=== PATIENT | male | born 1970 | race Caucasian/White ===

== ENCOUNTER → 2021-10-27 | Day surgery (SDC) | payer BC ==
[~2021-10-27] MED LIST: LIDOCAINE 1% INJ 10MG/ML (30 ML VIAL-PF) SQ ONE
[2021-10-27 10:05] VITALS: BP 136/79; PULSE 73; RESP 16; TEMP 98
[2021-10-27 10:12] LABS: Basophils % (A) 0 %; Eosinophils # (A) 0.2 k/uL (0-0.7); Eosinophils % (A) 2 %; HCT 51.9 % (39.0-53.0); HGB 16.5 gm/dL (13.0-17.5); Hypochromasia Slight; Lymphocytes # (A) 1.8 k/uL (1.0-4.8); Lymphocytes % (A) 26 %; MCH 26.4 pg (25.0-35.0); MCHC 31.8 g/dL (31.0-37.0); Mean Platelet Volume 7.9; Monocytes # (A) 0.5 k/uL (0-1.0); Monocytes % (A) 7 %; Neutrophils # (A) 4.5 k/uL (1.3-7.7); Neutrophils % (A) 62 %; Platelet Count 245 k/uL (150-450); RBC 6.25 m/uL (4.30-5.90); RDW 15.9 % (11.5-15.5); WBC 7.2 k/uL (3.8-10.6)
[2021-10-27 10:27] LABS: Albumin 4.3 g/dL (3.5-5.0); Calcium 9.3 mg/dL (8.4-10.2); Potassium 4.2 mmol/L (3.5-5.1); Total Bilirubin 0.6 mg/dL (0.2-1.3)
--- NOTE | 2021-10-27 12:09 | IR ---
PICC LINE PLACEMENT: HISTORY: Infection requiring long-term antibiotic therapy PROCEDURE: Ultrasound and fluoroscopic guidance of PICC line placement. COMPLICATIONS: None ANESTHESIA: 1. 1% Lidocaine locally. FINDINGS/TECHNIQUE: The procedure was explained to the patient. The risks, complications, benefits and alternatives were discussed and any questions were answered. Informed consent was obtained. The patient was placed supine on the fluoroscopic table and prepped and draped in the usual sterile fash ion. Utilizing a 21 gauge needle and sonographic and fluoroscopic guidance, access in the left brac hial vein was achieved and there is placement of a 0.018 guidewire. The vein is patent. A 4-F sheat h was placed over the guidewire. The guidewire and dilator were removed and a 4-F. PICC line was olivia grace through the sheath with the tip at the level of the SVC. The sheath was removed, the catheter wa s flushed and sutured into position. The patient was stable throughout the procedure and remained st able upon discharge from the Department of Radiology. The vein puncture was patent under ultrasound. A alvarez scale image was obtained to document patency of the vein punctured. All elements of the maximal barrier technique were utilized. FLUOROSCOPY TIME: 0.1 minutes and was submitted IMPRESSION: Successful PICC line placement under ultrasound and fluoroscopic guidance.
== END ==
LOC: CATHCVL 09:24
PROVIDERS: ATTEND Radiology Diagnostic Radiology
DX: E11.69 Type 2 diabetes mellitus with other specified complication (principal); M86.9 Osteomyelitis, unspecified; E11.22 Type 2 diabetes mellitus with diabetic chronic kidney disease; N18.6 End stage renal disease; Z20.822 Contact with and (suspected) exposure to COVID-19
CPT/HCPCS: 36573; 80053; 80197; 85025; 87635; C1751; C1769; J2001

== ENCOUNTER 2024-05-29 05:42 | Day surgery (SDC) | payer BC ==
[2024-05-25 11:19] VITALS: BMI 24.3
[2024-05-29] MEDS ORDERED: HYDROmorphone 0.5 MG/0.5 ML SYRINGE IVP PRN (05:54)
[2024-05-29] MEDS ORDERED: LACTATED RINGERS 1,000 ML IV SCH (05:54)
[2024-05-29 06:29] LABS: Glucose,Whole Blood 111 mg/dL (70-110)
[2024-05-29] MEDS: ACETAMINOPHEN TAB 500 MG TAB PO PRN (06:33)
[2024-05-29] MEDS: HEPARIN SODIUM,PORCINE 5,000 UNIT/ML 1 ML VIAL SQ PRN (06:34)
[2024-05-29] MEDS: ONDANSETRON 4 MG/2 ML VIAL IVP ONE (06:34)
[2024-05-29] MEDS: DEXAMETHASONE SOD PHOSPHATE 4 MG/ML 1 ML VIAL IV ONE (06:34)
[2024-05-29 06:40] LABS: Anisocytosis Slight; Basophils % (A) 0 %; Eosinophils # (A) 0.2 k/uL (0-0.7); Eosinophils % (A) 4 %; HCT 29.4 % (39.0-53.0); Hypochromasia Slight; Lymphocytes # (A) 0.8 k/uL (1.0-4.8); Lymphocytes % (A) 15 %; MCH 24.9 pg (25.0-35.0); MCHC 30.7 g/dL (31.0-37.0); MCV 81.3 fL (80.0-100.0); Mean Platelet Volume 8.6; Microcytosis Slight; Monocytes # (A) 0.5 k/uL (0-1.0); Monocytes % (A) 9 %; Neutrophils # (A) 3.9 k/uL (1.3-7.7); Neutrophils % (A) 70 %; Platelet Count 241 k/uL (150-450); RBC 3.61 m/uL (4.30-5.90); RDW 18.9 % (11.5-15.5); WBC 5.6 k/uL (3.8-10.6)
[2024-05-29] MEDS: SODIUM CHLORIDE 0.9% 500 ML 500 ML IV ONE (06:46)
[2024-05-29 06:59] LABS: ALT 7 U/L (4-49); AST 14 U/L (17-59); African American GFR (CKD) 8 (>60 ml/min/1.73 sqM); Alkaline Phosphatase 46 U/L (38-126); Anion Gap 5 mmol/L; Blood Urea Nitrogen 38 mg/dL (9-20); Calcium 9.2 mg/dL (8.4-10.2); Carbon Dioxide 33 mmol/L (22-30); Chloride 95 mmol/L (98-107); Glucose 106 mg/dL (74-99); Non-African American GFR(CKD) 7 (>60 ml/min/1.73 sqM); Potassium 4.3 mmol/L (3.5-5.1); Sodium 133 mmol/L (137-145); Total Bilirubin 0.6 mg/dL (0.2-1.3); Total Protein 6.2 g/dL (6.3-8.2)
[2024-05-29] MEDS ORDERED: PROPOFOL 10 MG/ML 20 ML VIAL IV ONE (07:25)
[2024-05-29] MEDS ORDERED: fentaNYL (PF) 50 MCG/ML 2 ML AMP ONE (07:25)
[2024-05-29] MEDS ORDERED: SUCCINYLCHOLINE CHLORIDE 200 MG/10 ML VIAL IV ONE (07:25)
[2024-05-29] MEDS ORDERED: MIDAZOLAM 2 MG/2 ML VIAL ONE (07:25)
[2024-05-29] MEDS ORDERED: LIDOCAINE 1% INJ 10MG/ML (20 ML MDV) ONE (07:25)
--- NOTE | 2024-05-29 07:31 | P.GSHP ---
History of Present Illness H&P Date: 05/29/24 Chief Complaint: Renal failure 54-year-old male here for peritoneal dialysis catheter insertion. Patient has not had a PD cath in the past. He has had 2 separate transplants previously. He has been on hemodialysis on various times of his life. Patient with history of polycystic kidney. Patient with stage IV anal cancer. Remains on immunotherapy. No cancer is active at this time. Past Medical History Past Medical History: Cancer, Diabetes Mellitus, Dialysis, GERD/Reflux, Hyperlipidemia, Hypertension Additional Past Medical History / Comment(s): Hx colon cancer 04/24, had chemo and radiation, currently on Keyytruda every 6 weeks, hx osteomyelitis right big toe right, neuropathy, hx bilateral kidney transplant due to hereditary polycystic kidney disase, dialysis MOWEFR. History of Any Multi-Drug Resistant Organisms: None Reported Past Surgical History: Ear Surgery, Orthopedic Surgery Additional Past Surgical History / Comment(s): Bilateral kidney transplant 2017, ORIF right wrist, myringotomy/tubes bilateral ears. Past Anesthesia/Blood Transfusion Reactions: No Reported Reaction Additional Past Anesthesia/Blood Transfusion Reaction / Comment(s): No hx blood transfusion. Smoking Status: Never smoker - Past Family History Mother Family Medical History: No Reported History Medications and Allergies Home Medications Medication Instructions Recorded Confirmed Type Simvastatin 40 mg PO DAILY 10/08/21 05/25/24 History Omeprazole [PriLOSEC] 20 mg PO DAILY PRN 10/24/21 05/25/24 History Cholecalciferol (Vitamin D3) 50 mcg PO DAILY 05/25/24 05/25/24 History [Vitamin D3 (50 Mcg = 2000 Iu)] Vit B Comp No.3/Folic/C/Biotin 1 each PO DAILY 05/25/24 05/25/24 History [Dixie-Desiree Rx Tablet] Vitamin B-12 (Unknown Dose) 1 tab PO DAILY 05/25/24 05/25/24 History Allergies Allergy/AdvReac Type Severity Reaction Status Date / Time lisinopril AdvReac Cough Verified 05/25/24 10:56 Surgical - Exam Vital Signs Temp Pulse Resp BP Pulse Ox 99.1 F 84 18 151/90 99 05/29/24 06:43 05/29/24 06:43 05/29/24 06:43 05/29/24 06:43 05/29/24 06:43 Physical exam: General: Well-developed, well-nourished HEENT: Normocephalic, sclerae nonicteric Abdomen: Nontender, distended mildly from polycystic kidneys Extremities: No edema Neuro: Alert and oriented Results - Labs 05/29/24 06:30 05/29/24 06:30 Abnormal Lab Results - Last 24 Hours (Table) 05/29/24 05/29/24 05/29/24 Range/Units 06:27 06:30 06:30 RBC 3.61 L (4.30-5.90) m/uL Hgb 9.0 L (13.0-17.5) gm/dL Hct 29.4 L (39.0-53.0) % MCH 24.9 L (25.0-35.0) pg MCHC 30.7 L (31.0-37.0) g/dL RDW 18.9 H (11.5-15.5) % Lymphocytes # 0.8 L (1.0-4.8) k/uL Sodium 133 L (137-145) mmol/L Chloride 95 L (98-107) mmol/L Carbon Dioxide 33 H (22-30) mmol/L BUN 38 H (9-20) mg/dL Creatinine 7.96 H* (0.66-1.25) mg/dL Glucose 106 H (74-99) mg/dL POC Glucose (mg/dL) 111 H (70-110) mg/dL AST 14 L (17-59) U/L Total Protein 6.2 L (6.3-8.2) g/dL Albumin 3.0 L (3.5-5.0) g/dL Diabetes panel 05/29/24 Range/Units 06:30 Sodium 133 L (137-145) mmol/L Potassium 4.3 (3.5-5.1) mmol/L Chloride 95 L (98-107) mmol/L Carbon Dioxide 33 H (22-30) mmol/L BUN 38 H (9-20) mg/dL Creatinine 7.96 H* (0.66-1.25) mg/dL Glucose 106 H (74-99) mg/dL Calcium 9.2 (8.4-10.2) mg/dL AST 14 L (17-59) U/L ALT 7 (4-49) U/L Alkaline Phosphatase 46 (38-126) U/L Total Protein 6.2 L (6.3-8.2) g/dL Albumin 3.0 L (3.5-5.0) g/dL Calcium panel 05/29/24 Range/Units 06:30 Calcium 9.2 (8.4-10.2) mg/dL Albumin 3.0 L (3.5-5.0) g/dL Pituitary panel 05/29/24 Range/Units 06:30 Sodium 133 L (137-145) mmol/L Potassium 4.3 (3.5-5.1) mmol/L Chloride 95 L (98-107) mmol/L Carbon Dioxide 33 H (22-30) mmol/L BUN 38 H (9-20) mg/dL Creatinine 7.96 H* (0.66-1.25) mg/dL Glucose 106 H (74-99) mg/dL Calcium 9.2 (8.4-10.2) mg/dL Adrenal panel 05/29/24 Range/Units 06:30 Sodium 133 L (137-145) mmol/L Potassium 4.3 (3.5-5.1) mmol/L Chloride 95 L (98-107) mmol/L Carbon Dioxide 33 H (22-30) mmol/L BUN 38 H (9-20) mg/dL Creatinine 7.96 H* (0.66-1.25) mg/dL Glucose 106 H (74-99) mg/dL Calcium 9.2 (8.4-10.2) mg/dL Total Bilirubin 0.6 (0.2-1.3) mg/dL AST 14 L (17-59) U/L ALT 7 (4-49) U/L Alkaline Phosphatase 46 (38-126) U/L Total Protein 6.2 L (6.3-8.2) g/dL Albumin 3.0 L (3.5-5.0) g/dL Assessment and Plan (1) Renal failure Narrative/Plan: Will proceed with peritoneal dialysis catheter insertion at this time. Risks of bleeding, infection, fluid leak, hernia, poor function, peritonitis, bowel injury reviewed. He understands and wishes to proceed. Current Visit: Yes Status: Acute Code(s): N19 - UNSPECIFIED KIDNEY FAILURE SNOMED Code(s): 32355626
[2024-05-29] MEDS: BUPIVACAINE (PF) 0.25% 30 ML VIAL SQ ONE ×3 (07:52→08:22)
[2024-05-29] MEDS: MINERAL OIL 1 APPLIC/ML OIL MISCELLANE ONE (07:52)
[2024-05-29] MEDS ORDERED: HYDROcodone/APAP 5-325MG 1 EACH TAB PO PRN (08:31)
[2024-05-29] MEDS ORDERED: ACETAMINOPHEN TAB 325 MG TAB PO PRN (08:31)
[2024-05-29] MEDS ORDERED: NALOXONE 0.4 MG/ML 1 ML VIAL IV PRN (08:31)
--- NOTE | 2024-05-29 08:38 | P.OP ---
Date of Procedure: 05/29/24 Procedure(s) Performed: PREOPERATIVE DIAGNOSIS: Renal failure POSTOPERATIVE DIAGNOSIS: Same PROCEDURE: Peritoneal dialysis catheter insertion SURGEON: Gomez EBL: Minimal ANESTHESIA: Sedation plus local COMPLICATIONS: None OPERATIVE PROCEDURE: The patient was placed in the operative table in the supine position. The abdomen was prepped and draped in usual sterile fashion. A small vertical incision was made in the right periumbilical location. Dissection down through the subcutaneous tissues took place using electrocautery. Patient had numerous small veins running through the subcutaneous fat that were ligated using 3-0 silk ties. The anterior rectus was divided vertically using the scalpel. The rectus was bluntly. The posterior rectus was visualized. An 0 Vicryl pursestring was placed. A small opening in the posterior rectus fascia and peritoneum took place using a Metzenbaum scissors. There were no adhesions to the suture that was placed. The pigtail catheter was advanced into the pelvis over a stylette. No resistance was met. The inner cuff was secured to the fascia using the 0 Vicryl pursestring that was placed. The catheter was tunneled to an exit site in the right lateral lower quadrant. The catheter was connected to the 1 L bag of saline and approximated 800 mL of saline was easily introduced into the peritoneal cavity. The fluid was then allowed to evacuate. The majority of the fluid was returned. The anterior rectus fascia was then reapproximated using a running 0 Vicryl stitch. The subcutaneous tissues reprepped using 3-0 Vicryl sutures and the skin using 4-0 Monocryl sutures. The outpatient dialysis adapter was applied to the end of the catheter. Sterile dressings were then applied after skin glue was placed over the incision. DISPOSITION: Stable to recovery room
[2024-05-29 08:43] VITALS: TEMP 97.2
[2024-05-29 09:50] VITALS: RESP 18
[2024-05-29 10:17] VITALS: BP 134/88; PULSE 54
== END 2024-05-29 09:30 ==
LOC: OR 05:42
PROVIDERS: ATTEND Surgery
DX: N19 Unspecified kidney failure (principal); Z94.0 Kidney transplant status; I10 Essential (primary) hypertension; E78.5 Hyperlipidemia, unspecified; E11.40 Type 2 diabetes mellitus with diabetic neuropathy, unspecified; K21.9 Gastro-esophageal reflux disease without esophagitis; Z87.448 Personal history of other diseases of urinary system; Z85.048 Personal history of other malignant neoplasm of rectum, rectosigmoid junction, and anus; Z79.899 Other long term (current) drug therapy; Z79.01 Long term (current) use of anticoagulants; Z99.2 Dependence on renal dialysis; Z88.8 Allergy status to other drugs, medicaments and biological substances
CPT/HCPCS: 80053; 85025; 49421; J2250; J0330; J1644; J1100; J0690; J2405; J2003; J3010; J2704; J0665

== ENCOUNTER 2024-07-07 07:59 | Inpatient (IN) | payer BC ==
--- NOTE | 2024-07-07 07:33 | P.GSHP ---
History of Present Illness H&P Date: 07/07/24 Chief Complaint: Renal failure 54-year-old male underwent right-sided peritoneal dialysis catheter insertion on 05/29. Postoperatively the patient has had issues with the catheter not draining appropriately. He has had some drain discomfort as well. Was contacted by his jewelsmith 1 to 2 weeks ago requesting a revision. Patient I had already discussed possible laparoscopic revision if the catheter continued to drain poorly. Past Medical History Past Medical History: Cancer, Diabetes Mellitus, Dialysis, GERD/Reflux, Hyperlipidemia, Hypertension, Pneumonia Additional Past Medical History / Comment(s): Hx colon cancer 04/24, had chemo and radiation, currently on Keyytruda every 6 weeks, hx osteomyelitis right big toe, neuropathy, hx bilateral kidney transplant due to hereditary polycystic kidney disase, current hemodialysis MOWEFR-left chest port, peritoneal dialysis catheter currently not functioning. History of Any Multi-Drug Resistant Organisms: None Reported Past Surgical History: Ear Surgery, Orthopedic Surgery Additional Past Surgical History / Comment(s): Bilateral kidney transplant 2017, ORIF right wrist, myringotomy/tubes bilateral ears, peritoneal dialysis catheter insertion 05/29/24 Past Anesthesia/Blood Transfusion Reactions: No Reported Reaction Additional Past Anesthesia/Blood Transfusion Reaction / Comment(s): No hx blood transfusion. Smoking Status: Never smoker - Past Family History Mother Family Medical History: No Reported History Medications and Allergies Home Medications Medication Instructions Recorded Confirmed Type Simvastatin 40 mg PO HS 10/08/21 07/04/24 History Omeprazole [PriLOSEC] 20 mg PO DAILY PRN 10/24/21 07/04/24 History Cholecalciferol (Vitamin D3) 50 mcg PO DAILY 05/25/24 07/04/24 History [Vitamin D3 (50 Mcg = 2000 Iu)] Vit B Comp No.3/Folic/C/Biotin 1 each PO DAILY 05/25/24 07/04/24 History [Dixie-Desiree Rx Tablet] Vitamin B-12 (Unknown Dose) 1 tab PO DAILY 05/25/24 07/04/24 History HYDROcodone/APAP 5-325MG [[place] 1 tab PO Q6HR PRN 3 Days #6 tab 05/29/24 07/04/24 Rx 5-325] Sevelamer Carbonate 1,600 mg PO TID-W/MEALS 07/04/24 07/04/24 History Allergies Allergy/AdvReac Type Severity Reaction Status Date / Time lisinopril AdvReac Cough Verified 07/04/24 08:44 Surgical - Exam Physical exam: General: Well-developed, well-nourished HEENT: Normocephalic, sclerae nonicteric Abdomen: Nontender, nondistended, catheter in place right abdomen, large palpable abdominal wall masses consistent with polycystic kidney, pelvic masses consistent with prior kidney transplants Extremities: No edema Neuro: Alert and oriented Assessment and Plan (1) Renal failure Narrative/Plan: Will proceed with laparoscopic peritoneal dialysis catheter revision, possible removal, possible replacement. Risks of bleeding, infection, scarring, bowel injury, fluid leak, peritonitis, poor function discussed. Patient understands and wishes to proceed. Status: Acute Code(s): N19 - UNSPECIFIED KIDNEY FAILURE SNOMED Code(s): 22272109
[~2024-07-07 07:59] MED LIST changes: +ACETAMINOPHEN TAB 500 MG TAB PO PRN; +HEPARIN SODIUM,PORCINE 5,000 UNIT/ML 1 ML VIAL SQ PRN; +HYDROmorphone 0.5 MG/0.5 ML SYRINGE IVP PRN; -LIDOCAINE 1% INJ 10MG/ML (30 ML VIAL-PF) SQ ONE; +MIDAZOLAM 2 MG/2 ML VIAL IV PRN; +ceFAZolin 2 GM in DEXTROSE 5% IN WATER 50 ML IVPB PRN
[2024-07-07] MEDS: IV FLUID CONTINUATION 1,000 ML IV ONE (09:05)
[2024-07-07 09:13] LABS: HCT 37.4 % (39.6-50.0); HGB 11.7 g/dL (13.0-17.0); MCH 27.6 pg (27.0-32.0); MCHC 31.3 g/dL (32.0-37.0); MCV 88.2 fL (80.0-97.0); Mean Platelet Volume 9.4 fL (9.5-12.2); Platelet Count 177 10*3/uL (140-440); RBC 4.24 10*6/uL (4.40-5.60); RDW 19.5 % (11.5-14.5); WBC 5.17 10*3/uL (4.50-10.00)
[2024-07-07 09:14] LABS: Glucose,Whole Blood 116 mg/dL (70-110)
[2024-07-07 09:23] LABS: African American GFR (CKD) 9 (>60 ml/min/1.73 sqM); Blood Urea Nitrogen 40 mg/dL (9-20); Non-African American GFR(CKD) 8 (>60 ml/min/1.73 sqM)
[2024-07-07 10:01] LABS: Potassium 4.6 mmol/L (3.5-5.1)
[2024-07-07 10:02] LABS: NT-Pro-B-Type Natriuretic Pept >300000 pg/mL
--- NOTE | 2024-07-07 14:24 | P.GSCN ---
History of Present Illness Consult date: 07/07/24 Reason for Consult: Malfunctioning peritoneal dialysis catheter History of present illness: Please refer to history and physical dictated earlier today. Patient was seen by both myself and anesthesia preoperatively. Came into the hospital in a wheelchair stating he was very weak. Patient was visibly short of breath with any exertion. Ultrasound done in preop demonstrated some pleural fluid. Given the patient's overall condition after discussion with anesthesia we decided to hold off on surgery and continue with medical workup. Patient has been getting regular hemodialysis and has no signs of edema peripherally. Unclear whether t he shortness of breath could be related to pleural effusion or cardiac etiology. Past Medical History Past Medical History: Cancer, Diabetes Mellitus, Dialysis, GERD/Reflux, Hyperlipidemia, Hypertension, Pneumonia Additional Past Medical History / Comment(s): Hx colon cancer 04/24, had chemo and radiation, currently on Keyytruda every 6 weeks, hx osteomyelitis right big toe, neuropathy, hx bilateral kidney transplant due to hereditary polycystic kidney disase, current hemodialysis MOWEFR-left chest port, peritoneal dialysis catheter currently not functioning. History of Any Multi-Drug Resistant Organisms: None Reported Past Surgical History: Ear Surgery, Orthopedic Surgery Additional Past Surgical History / Comment(s): Bilateral kidney transplant 2017, ORIF right wrist, myringotomy/tubes bilateral ears, peritoneal dialysis catheter insertion 05/29/24 Past Anesthesia/Blood Transfusion Reactions: No Reported Reaction Additional Past Anesthesia/Blood Transfusion Reaction / Comm: No hx blood transfusion. Smoking Status: Never smoker - Past Family History Mother Family Medical History: No Reported History Medications and Allergies Home Medications Medication Instructions Recorded Confirmed Type Simvastatin 40 mg PO HS 10/08/21 07/07/24 History Omeprazole [PriLOSEC] 20 mg PO DAILY PRN 10/24/21 07/07/24 History Cholecalciferol (Vitamin D3) 50 mcg PO DAILY 05/25/24 07/07/24 History [Vitamin D3 (50 Mcg = 2000 Iu)] Vit B Comp No.3/Folic/C/Biotin 1 each PO DAILY 05/25/24 07/07/24 History [Dixie-Desiree Rx Tablet] Vitamin B-12 (Unknown Dose) 1 tab PO DAILY 05/25/24 07/07/24 History HYDROcodone/APAP 5-325MG [[place] 1 tab PO Q6HR PRN 3 Days #6 tab 05/29/24 07/07/24 Rx 5-325] Sevelamer Carbonate 1,600 mg PO TID-W/MEALS 07/04/24 07/07/24 History Apixaban [Eliquis] 5 mg PO DAILY 07/07/24 07/07/24 History Metoprolol Succinate [Metoprolol 25 mg PO HS 07/07/24 07/07/24 History Succinate ER] Zolpidem [Ambien] 5 mg PO HS PRN 07/07/24 07/07/24 History diphenhydrAMINE [Benadryl] 50 mg PO BID PRN 07/07/24 07/07/24 History Allergies Allergy/AdvReac Type Severity Reaction Status Date / Time lisinopril AdvReac Cough Verified 07/07/24 08:34 Surgical - Exam Vital Signs Temp Pulse Resp BP Pulse Ox 97.7 F 44 L 16 174/102 99 07/07/24 08:42 07/07/24 08:42 07/07/24 08:42 07/07/24 08:42 07/07/24 08:42 Please refer to history and physical dictated this morning Results - Labs 07/07/24 09:08 07/07/24 09:08 Abnormal Lab Results - Last 24 Hours (Table) 07/07/24 07/07/24 07/07/24 Range/Units 09:08 09:08 09:13 RBC 4.24 L (4.40-5.60) 10*6/uL Hgb 11.7 L (13.0-17.0) g/dL Hct 37.4 L (39.6-50.0) % MCHC 31.3 L (32.0-37.0) g/dL MPV 9.4 L (9.5-12.2) fL BUN 40 H (9-20) mg/dL Creatinine 7.23 H* (0.66-1.25) mg/dL POC Glucose (mg/dL) 116 H (70-110) mg/dL Diabetes panel 07/07/24 Range/Units 09:08 Potassium 4.6 (3.5-5.1) mmol/L BUN 40 H (9-20) mg/dL Creatinine 7.23 H* (0.66-1.25) mg/dL Pituitary panel 07/07/24 Range/Units 09:08 Potassium 4.6 (3.5-5.1) mmol/L BUN 40 H (9-20) mg/dL Creatinine 7.23 H* (0.66-1.25) mg/dL Adrenal panel 07/07/24 Range/Units 09:08 Potassium 4.6 (3.5-5.1) mmol/L BUN 40 H (9-20) mg/dL Creatinine 7.23 H* (0.66-1.25) mg/dL Assessment and Plan (1) Renal failure Narrative/Plan: 54-year-old male with malfunctioning peritoneal dialysis catheter. Will obtain chest imaging and consults to nephrology, cardiology, and pulmonary. If significant effusion seen on chest imaging would be concerned that some of the poor output from the catheter could be related to transdiaphragmatic fluid leak. Imaging studies to determine if that is in fact the case may be required if large effusion seen. Current Visit: No Status: Acute Code(s): N19 - UNSPECIFIED KIDNEY FAILURE SNOMED Code(s): 96352059
[2024-07-07] MEDS: ONDANSETRON 4 MG/2 ML VIAL IVP ONE (14:33)
[2024-07-07] MEDS: DEXAMETHASONE SOD PHOSPHATE 4 MG/ML 1 ML VIAL IV ONE (14:33)
[2024-07-07] MEDS: LACTATED RINGERS 1,000 ML IV SCH (14:34)
[2024-07-07] MEDS: SCOPOLAMINE 1 MG/72 HR PATCH TRANSDERM ONE (14:47)
--- NOTE | 2024-07-07 15:42 | XR ---
EXAMINATION TYPE: XR chest 1V portable DATE OF EXAM: 07/07/2024 3:36 PM COMPARISON: None TECHNIQUE: XR chest 1V portable Portable AP radiograph of the chest. CLINICAL INDICATION:Male, 54 years old with history of pleural effusion; FINDINGS: Lungs/Pleura: Small right pleural effusion. No pneumothorax. Pulmonary vascularity: Pulmonary vascular congestion. Heart/mediastinum: Cardiomediastinal silhouette is enlarged. Musculoskeletal: No acute osseous pathology. Other findings: None Lines/Tubes: Dual-lumen left IJ approach central venous catheter distal tip in the right atrium. There appears to be a retracted possible Mediport catheter within the right upper chest. The tip of the catheter appea rs to be within the right subclavian vein. IMPRESSION: 1. Cardiomegaly, pulmonary vascular congestion and small right pleural effusion. Correlate with BNP for congestive heart failure. 2. Suggested retracted possible Mediport catheter within the right upper chest. Correlate clinically . [facility], , 07/07/2024 3:40 PM
--- NOTE | 2024-07-07 15:55 | P.CNPUL ---
History of Present Illness Consult date: 07/07/24 Requesting physician: Adin Dyer Reason for consult: dyspnea, pleural effusion Chief complaint: Shortness of breath. History of present illness: Pulmonary consultation dated July 07, 2024. 54-year-old male with history of end-stage renal disease, currently on peritoneal dialysis. The patient's peritoneal dialysis catheter is nonfunctional, and the patient is to have a revision. Apparently recently, he was thought to have a pleural effusion, when somebody with the portable ultrasound device, checked his right chest. The surgeon asked me to look at him, to determine if he did in fact have a pleural effusion, and whether or not he needed a thoracentesis. The patient had a chest x-ray, that was just recently done, which showed at the very most very tiny right-sided pleural effusion. It does appear that he has some fluid overload though, from his underlying renal failure. He has examined today in room 628. He is laying nearly flat in bed. No respiratory distress. He is on room air. No fluids. Current laboratory data includes a white count of 5.2, hemoglobin 11.7, hematoc rit 37.4, and a platelet count of 177,000. Potassium 4.6, BUN 40, creatinine 7.23. His N-terminal proBNP is greater than 300,000. Glucose is 116. Chest x- ray confirms cardiomegaly, pulmonary vascular congestion, and a very small right-sided pleural effusion. The patient denies a prior history of lung disease. The patient is a non-smoker. Review of Systems REVIEW OF SYSTEMS: CONSTITUTIONAL: Fatigue. NEUROLOGIC: [ Negative.] HEENT: [ Negative.] CARDIAC: [Negative.] PULMONARY: Shortness of breath. GI: [Negative.] : [Negative.] RHEUMATOLOGIC: [ Negative.] IMMUNOLOGIC: [ Negative.] ENDOCRINE: [Negative. ] DERMATOLOGIC: [Negative.] Past Medical History Past Medical History: Cancer, Diabetes Mellitus, Dialysis, GERD/Reflux, Hyperlipidemia, Hypertension, Pneumonia Additional Past Medical History / Comment(s): Hx colon cancer 04/24, had chemo and radiation, currently on Keyytruda every 6 weeks, hx osteomyelitis right big toe, neuropathy, hx bilateral kidney transplant due to hereditary polycystic kidney disase, current hemodialysis MOWEFR-left chest port, peritoneal dialysis catheter currently not functioning. History of Any Multi-Drug Resistant Organisms: None Reported Past Surgical History: Ear Surgery, Orthopedic Surgery Additional Past Surgical History / Comment(s): Bilateral kidney transplant 2018, ORIF right wrist, myringotomy/tubes bilateral ears, peritoneal dialysis catheter insertion 05/29/24 Past Anesthesia/Blood Transfusion Reactions: No Reported Reaction Additional Past Anesthesia/Blood Transfusion Reaction / Comment(s): No hx blood transfusion. Smoking Status: Never smoker - Past Family History Mother Family Medical History: No Reported History Medications and Allergies Home Medications Medication Instructions Recorded Confirmed Type Simvastatin 40 mg PO HS 10/08/21 07/07/24 History Omeprazole [PriLOSEC] 20 mg PO DAILY PRN 10/24/21 07/07/24 History Cholecalciferol (Vitamin D3) 50 mcg PO DAILY 05/25/24 07/07/24 History [Vitamin D3 (50 Mcg = 2000 Iu)] Vit B Comp No.3/Folic/C/Biotin 1 each PO DAILY 05/25/24 07/07/24 History [Dixie-Desiree Rx Tablet] Vitamin B-12 (Unknown Dose) 1 tab PO DAILY 05/25/24 07/07/24 History HYDROcodone/APAP 5-325MG [[place] 1 tab PO Q6HR PRN 3 Days #6 tab 05/29/24 07/07/24 Rx 5-325] Sevelamer Carbonate 1,600 mg PO TID-W/MEALS 07/04/24 07/07/24 History Apixaban [Eliquis] 5 mg PO DAILY 07/07/24 07/07/24 History Metoprolol Succinate [Metoprolol 25 mg PO HS 07/07/24 07/07/24 History Succinate ER] Zolpidem [Ambien] 5 mg PO HS PRN 07/07/24 07/07/24 History diphenhydrAMINE [Benadryl] 50 mg PO BID PRN 07/07/24 07/07/24 History Allergies Allergy/AdvReac Type Severity Reaction Status Date / Time lisinopril AdvReac Cough Verified 07/07/24 08:34 Physical Exam Osteopathic Statement: *. No significant issues noted on an osteopathic structural exam other than those noted in the History and Physical/Consult. Vitals: Vital Signs Temp Pulse Resp BP BP Pulse Ox 07/07/24 14:43 97.5 F L 99 16 153/110 93 L 07/07/24 09:28 87 16 143/101 96 07/07/24 08:42 97.7 F 44 L 16 174/102 99 Intake and Output 07/07/24 07/07/24 07/07/24 06:59 14:59 22:59 Intake Total 50 Balance 50 Intake: IV 50 Other: Weight 97.2 kg No acute distress, oriented 3. No respiratory distress. Currently on room air. Saturation is 96%. HEENT examination is grossly unremarkable. Mucous membranes are moist. No oral lesions. Neck supple. Full range of motion. No adenopathy thyromegaly or neck vein distention. Cardiovascular examination reveals regular rhythm rate. S1-S2 normal. No S3 or S4. No discernible murmur noted. Lungs reveal bibasilar crackles. No wheezes. No rhonchi. Breath sounds are equal. Abdomen soft bowel sounds are heard. No masses or tenderness. Extremities are intact. No cyanosis clubbing or edema. Skin is without rash or lesion. Neurologic examination is brief but nonfocal. Results - Laboratory Findings CBC and BMP: 07/07/24 09:08 07/07/24 09:08 Abnormal lab findings: Abnormal Labs 07/07/24 07/07/24 07/07/24 09:08 09:08 09:13 RBC 4.24 L Hgb 11.7 L Hct 37.4 L MCHC 31.3 L MPV 9.4 L BUN 40 H Creatinine 7.23 H* POC Glucose (mg/dL) 116 H - Diagnostic Findings Chest x-ray: image reviewed Assessment and Plan Assessment: Shortness of breath, likely on the basis of fluid overload, secondary to the patient's renal failure. History of polycystic kidney disease. History of failed kidney transplant x 2. History of anal cancer. History of hypertension. History of hyperlipidemia. History of gastroesophageal reflux disease. Plan: Plan dated July 07, 2024. The patient's chest x-ray does not reveal a significant right-sided effusion. It does reveal evidence of fluid overload/CHF. Labs, x-rays, and medications are reviewed. No need for thoracentesis at this time. The patient is to have a revision of his peritoneal dialysis catheter, and once functioning, his overall respiratory situation should improve. His BNP was greater than 300,000. Labs, x-rays, and medications are reviewed. Information was passed onto the surgeon. Will see the patient as needed. Dictation was produced using [employer] dictation software. Please excuse any grammatical, word or spelling errors. Time with Patient: Greater than 30
[2024-07-07] MEDS: SEVELAMER 800 MG TAB PO SCH (18:01)
[2024-07-07] MEDS: hydrALAZINE HCL 20 MG/ML 1 ML VIAL IVP PRN (20:54)
[2024-07-07] MEDS: METOPROLOL SUCCINATE (ER) 25 MG TAB.ER.24H PO SCH (22:35)
[2024-07-07] MEDS: ATORVASTATIN 20 MG TAB PO SCH (22:35)
[2024-07-07] MEDS: ZOLPIDEM 5 MG TAB PO PRN (22:41)
[2024-07-08] MEDS: HYDROcodone/APAP 5-325MG 1 EACH TAB PO PRN (06:35)
[2024-07-08] MEDS: CHOLECALCIFEROL 25 MCG (1000 IU) TABLET PO SCH (08:31)
[2024-07-08] MEDS: FOLIC ACID-VIT B COMPLEX-VIT C 1 CAP PO SCH (08:32)
[2024-07-08] MEDS ORDERED: PANTOPRAZOLE 40 MG TABLET PO PRN (09:00)
--- NOTE | 2024-07-08 09:16 | P.HPIM ---
History of Present Illness H&P Date: 07/07/24 Chief Complaint: Nonfunctional peritoneal dialysis catheter 54-year-old male with history of hypertension, hyperlipidemia, diabetes mellitus, cardiomyopathy, end-stage renal disease, currently on peritoneal dialysis presents to the hospital for concerns about nonfunctioning peritoneal dialysis catheter; patient has been brought to the hospital electively for revision of the catheter. While in preop, patient had episodes of bigeminy on the monitor and reported dyspnea and had to be brought in via wheelchair; given episodes of bigeminy and complaints of dyspnea, hospital medicine was contacted for medical clearance. Patient reports he was admitted to [facility] in March 2024 for chest pain at which she was found to have ejection fraction of 25 to 30% and patient was initially placed on Entresto which was later discontinued; patient is a poor historian and not sure of the recommendations from the palliative care nurse at that time and why Entresto was discontinued upon follow-up Chest x-ray recently done, showed small right-sided pleural effusion. It does appear that he has some fluid overload though, from his underlying renal failure. -- Current laboratory data includes a white count of 5.2, hemoglobin 11.7, hematocrit 37.4, and a platelet count of 177,000. Potassium 4.6, BUN 40, creatinine 7.23. His N-terminal proBNP is greater than 300,000. Glucose is 116. Chest x-ray confirms cardiomegaly, pulmonary vascular congestion, and a very small right-sided pleural effusion. The patient denies a prior history of lung disease. The patient is a non-smoker. Given complaint of dyspnea and pleural effusion along with pulmonary vascular congestion, cardiology and pulmonary services consulted Review of Systems REVIEW OF SYSTEMS: CONSTITUTIONAL: No fever, no malaise, no fatigue. HEENT: No recent visual problems or hearing problems. Denied any sore throat. CARDIOVASCULAR: No chest pain, awake complains of orthopnea and PND, no palpitations, no syncope. PULMONARY: Dyspnea on minimal exertion is reported, no cough, no hemoptysis. GASTROINTESTINAL: No diarrhea, no nausea, no vomiting, no abdominal pain. NEUROLOGICAL: No headaches, no weakness, no numbness. HEMATOLOGICAL: Denies any bleeding or petechiae. GENITOURINARY: Denies any burning micturition, frequency, or urgency. MUSCULOSKELETAL/RHEUMATOLOGICAL: Denies any joint pain, swelling, or any muscle pain. ENDOCRINE: Denies any polyuria or polydipsia. The rest of the 14-point review of systems is negative. Past Medical History Past Medical History: Cancer, Diabetes Mellitus, Dialysis, GERD/Reflux, Hyp erlipidemia, Hypertension, Pneumonia Additional Past Medical History / Comment(s): Hx colon cancer 04/24, had chemo and radiation, currently on Keyytruda every 6 weeks, hx osteomyelitis right big toe, neuropathy, hx bilateral kidney transplant due to hereditary polycystic kid mehreen disase, current hemodialysis MOWEFR-left chest port, peritoneal dialysis catheter currently not functioning. History of Any Multi-Drug Resistant Organisms: None Reported Past Surgical History: Ear Surgery, Orthopedic Surgery Additional Past Surgical History / Comment(s): Bilateral kidney transplant 2017, ORIF right wrist, myringotomy/tubes bilateral ears, peritoneal dialysis catheter insertion 05/29/24 Past Anesthesia/Blood Transfusion Reactions: No Reported Reaction Additional Past Anesthesia/Blood Transfusion Reaction / Comment(s): No hx blood transfusion. Smoking Status: Never smoker - Past Family History Mother Family Medical History: No Reported History Medications and Allergies Home Medications Medication Instructions Recorded Confirmed Type Simvastatin 40 mg PO HS 10/08/21 07/07/24 History Omeprazole [PriLOSEC] 20 mg PO DAILY PRN 10/24/21 07/07/24 History Cholecalciferol (Vitamin D3) 50 mcg PO DAILY 05/25/24 07/07/24 History [Vitamin D3 (50 Mcg = 2000 Iu)] Vit B Comp No.3/Folic/C/Biotin 1 each PO DAILY 05/25/24 07/07/24 History [Dixie-Desiree Rx Tablet] Vitamin B-12 (Unknown Dose) 1 tab PO DAILY 05/25/24 07/07/24 History HYDROcodone/APAP 5-325MG [[place] 1 tab PO Q6HR PRN 3 Days #6 tab 05/29/2407/07 Rx 5-325] Sevelamer Carbonate 1,600 mg PO TID-W/MEALS 07/04/24 07/07/24 History Apixaban [Eliquis] 5 mg PO DAILY 07/07/24 07/07/24 History Metoprolol Succinate [Metoprolol 25 mg PO HS 07/07/24 07/07/24 History Succinate ER] Zolpidem [Ambien] 5 mg PO HS PRN 07/07/24 07/07/24 History diphenhydrAMINE [Benadryl] 50 mg PO BID PRN 07/07/24 07/07/24 History Allergies Allergy/AdvReac Type Severity Reaction Status Date / Time lisinopril AdvReac Cough Verified 07/07/24 08:34 Physical Exam Vitals: Vital Signs Temp Pulse Resp BP Pulse Ox 07/07/24 09:28 87 16 143/101 96 07/07/24 08:42 97.7 F 44 L 16 174/102 99 Intake and Output 07/06/24 07/07/24 07/07/24 22:59 06:59 14:59 Other: Weight 97.2 kg No acute distress, oriented 3. No respiratory distress. Currently on room air. Saturation is 96%. HEENT examination is grossly unremarkable. Mucous membranes are moist. No oral lesions. Neck supple. Full range of motion. No adenopathy thyromegaly or neck vein distention. Cardiovascular examination reveals regular rhythm rate. S1-S2 normal. No S3 or S4. No discernible murmur noted. Lungs reveal bibasilar crackles. No wheezes. No rhonchi. Breath sounds are equal. Abdomen soft bowel sounds are heard. No masses or tenderness. Extremities are intact. No cyanosis clubbing or edema. Skin is without rash or lesion. Neurologic examination is brief but nonfocal. Results CBC & Chem 7: 07/07/24 09:08 07/07/24 09:08 Labs: Abnormal Lab Results - Last 24 Hours (Table) 07/07/24 07/07/24 07/07/24 Range/Units 09:08 09:08 09:13 RBC 4.24 L (4.40-5.60) 10*6/uL Hgb 11.7 L (13.0-17.0) g/dL Hct 37.4 L (39.6-50.0) % MCHC 31.3 L (32.0-37.0) g/dL MPV 9.4 L (9.5-12.2) fL BUN 40 H (9-20) mg/dL Creatinine 7.23 H* (0.66-1.25) mg/dL POC Glucose (mg/dL) 116 H (70-110) mg/dL Thrombosis Risk Factor Assmnt - Choose All That Apply Any of the Below Risk Factors Present?: Yes Each Factor Represents 1 point: Age 41-60 years Each Risk Factor Represents 2 Points: Laparoscopic surgery, Malignancy Thrombosis Risk Factor Assessment Total Risk Factor Score: 5 Thrombosis Risk Factor Assessment Level: High Risk Assessment and Plan Assessment: 1. Cardiac arrhythmia/bigeminy --While in preop, sign erector revealed episodes of bigeminy; patient remained asymptomatic at that time - EKG was completed which revealed first-degree AV block and some ST and T wave changes; no prior EKG available for comparison - Will consult cardiology 2. Dyspnea on exertion - Chest x-ray reveals pulmonary vascular congestion and small right-sided pleural effusion - Patient has been evaluated by pulmonary service and thoracentesis is not recommended at this time - Will order BNP - Patient to have revision of dialysis catheter; nephrology on board for resuming dialysis - Dyspnea and fluid overload expected to improve once dialysis is resumed 3. Malfunctioning peritoneal dialysis catheter; General Surgery on board for revision of catheter 4. ESRD/PD; patient is currently on hemodialysis with plans to resume PD once dialysis catheter is replaced; nephrology is consulted - Will continue with home dose of sevelamer 1600 mg p.o. 3 times daily with meals 5. Hypertension; metoprolol 25 mg p.o. nightly 6. Hyperlipidemia; simvastatin 40 mg daily 7. DVT; patient takes Eliquis 8. History of failed renal transplant x 2 DVT prophylaxis; SCDs CODE STATUS; full code
--- NOTE | 2024-07-08 10:55 | P.PN ---
Subjective Progress Note Date: 07/08/24 Principal diagnosis: Malfunctioning dialysis catheter Patient feels better today. He did have dialysis yesterday. Feels less short of breath. Chest x-ray showed no sizable effusion. Awaiting cardiology evaluation today. Objective - Vital Signs Vital signs: Vital Signs Temp 97.6 F 07/08/24 07:00 Pulse 62 07/08/24 07:00 Resp 16 07/08/24 07:00 BP 126/72 07/08/24 07:00 Pulse Ox 98 07/08/24 07:00 FiO2 Intake & Output 07/07/24 07/08/24 07/08/24 18:59 06:59 18:59 Intake Total 168 500 Output Total 4500 Balance 168 -4000 Weight 97.2 kg Intake: IV 50 Oral 118 Hemodialysis 500 Output: Hemodialysis 2500 Hemodialysis Net Amount 2000 Other: # Voids 2 - Exam Abdomen: Soft, nontender, nondistended, areas of swelling related to polycystic kidney Chest: Left dialysis catheter in place, right Port-A-Cath in place, suspect more tubing around the Port-A-Cath than should be there - Labs CBC & Chem 7: 07/07/24 09:08 07/07/24 09:08 Assessment and Plan (1) Renal failure Narrative/Plan: Patient doing better today. Shortness of breath is improved. Patient's chest x-ray does show a malpositioned right chest wall Port-A-Cath. This was discussed with the patient. Will tentatively plan laparoscopic revision peritoneal dialysis catheter on Wednesday as we had planned for this past Wednesday. That is assuming we can get clearance from pulmonary, cardiology, and nephrology. At the same time we will remove the patient's right sided Port-A-Cath since it is nonfunctional. Current Visit: No Status: Acute Code(s): N19 - UNSPECIFIED KIDNEY FAILURE SNOMED Code(s): 96871311
[2024-07-08 11:46] LABS: African American GFR (CKD) 12 (>60 ml/min/1.73 sqM); Anion Gap 9 mmol/L; Blood Urea Nitrogen 31 mg/dL (9-20); Calcium 9.2 mg/dL (8.4-10.2); Carbon Dioxide 31 mmol/L (22-30); Chloride 94 mmol/L (98-107); Glucose 130 mg/dL (74-99); Non-African American GFR(CKD) 10 (>60 ml/min/1.73 sqM); Potassium 4.2 mmol/L (3.5-5.1); Sodium 134 mmol/L (137-145)
[2024-07-08 12:00] LABS: HCT 33.5 % (39.6-50.0); HGB 10.4 g/dL (13.0-17.0); MCH 27.3 pg (27.0-32.0); MCV 87.9 fL (80.0-97.0); Mean Platelet Volume 10.1 fL (9.5-12.2); Platelet Count 146 10*3/uL (140-440); RBC 3.81 10*6/uL (4.40-5.60); RDW 19.4 % (11.5-14.5); WBC 4.14 10*3/uL (4.50-10.00)
--- NOTE | 2024-07-08 13:18 | P.CRDCN ---
History of Present Illness Consult date: 07/08/24 History of present illness: HISTORY OF PRESENTING ILLNESS: 54-year-old with past medical history of hypertension dyslipidemia type 2 diabetes cardiomyopathy end-stage renal disease on peritoneal dialysis presented to the hospital because of nonfunctional peritoneal dialysis catheter. He was seeing his surgeon on an outpatient basis for revision of peritoneal dialysis catheter however he was deemed not appropriate for the procedure because of significant shortness of breath and generalized weakness. He was also noticed to have bigeminy on his cardiac tech. For this he was admitted. His last echo from March 2024 showed an EF of 25 to 30% and was placed on Entresto and later discontinued. Patient is otherwise a poor historian. Currently on admission hemoglobin 11.7, creatinine 7.25, NT-proBNP 300K, Chest x-ray shows very small right pleural effusion however no significant congestion history of fluid overload Yesterday patient got hemodialysis through his Gadiel dialysis catheter, and postdialysis his blood pressure is better controlled and he reports his symptoms of shortness of breath and generalized fatigue is improved. He reports much be tter. Blood pressure and heart rate is much better controlled, SBP 126/72 today. REVIEW OF SYSTEMS: 14 point review of system is negative except what is mentioned above in HPI. PHYSICAL EXAMINATION: Neck: Brisk carotid upstroke, no jugular venous distention. Lungs: Clear to auscultation. Heart: Regular rate and rhythm, S1-S2, , no murmur or rub. Abdomen: Soft nontender, distended, bowel sounds. Extremities: No edema, intact distal pulses. Neuro: Alert, oritented, no focal deficits. Detailed neuro exam was not performed. 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 Resume 5 mg twice daily once the surgery is done He is on Lipitor 20 mg, metoprolol 25 mg, will continue. For blood pressure control start Entresto 24/26 mg twice daily and hydralazine 25 mg 3 times daily Uptitrate hydralazine as needed. Avoid as needed medications. Patient is clear to undergo revision of peritoneal dialysis catheter from cardio vascular standpoint. On outpatient basis to evaluate if he would benefit from being on Graysono Mac Hill MD, FACC, RPVI Thank you for allowing [facility] to participate in this patient's care. Feel free to reach out in case of any followup questions. Past Medical History Past Medical History: Cancer, Diabetes Mellitus, Dialysis, GERD/Reflux, Hyperlipidemia, Hypertension, Pneumonia Additional Past Medical History / Comment(s): Hx colon cancer 04/24, had chemo and radiation, currently on Keyytruda every 6 weeks, hx osteomyelitis right big toe, neuropathy, hx bilateral kidney transplant due to hereditary polycystic kidney disase, current hemodialysis MOWEFR-left chest port, peritoneal dialysis catheter currently not functioning. History of Any Multi-Drug Resistant Organisms: None Reported Past Surgical History: Ear Surgery, Orthopedic Surgery Additional Past Surgical History / Comment(s): Bilateral kidney transplant 2017, ORIF right wrist, myringotomy/tubes bilateral ears, peritoneal dialysis catheter insertion 05/29/24 Past Anesthesia/Blood Transfusion Reactions: No Reported Reaction Additional Past Anesthesia/Blood Transfusion Reaction / Comment(s): No hx blood transfusion. Smoking Status: Never smoker - Past Family History Mother Family Medical History: No Reported History Medications and Allergies Home Medications Medication Instructions Recorded Confirmed Type Simvastatin 40 mg PO HS 10/08/21 07/07/24 History Omeprazole [PriLOSEC] 20 mg PO DAILY PRN 10/24/21 07/07/24 History Cholecalciferol (Vitamin D3) 50 mcg PO DAILY 05/25/24 07/07/24 History [Vitamin D3 (50 Mcg = 2000 Iu)] Vit B Comp No.3/Folic/C/Biotin 1 each PO DAILY 05/25/24 07/07/24 History [Dixie-Desiree Rx Tablet] Vitamin B-12 (Unknown Dose) 1 tab PO DAILY 05/25/24 07/07/24 History HYDROcodone/APAP 5-325MG [[place] 1 tab PO Q6HR PRN 3 Days #6 tab 05/29/24 07/07/24 Rx 5-325] Sevelamer Carbonate 1,600 mg PO TID-W/MEALS 07/04/24 07/07/24 History Apixaban [Eliquis] 5 mg PO DAILY 07/07/24 07/07/24 History Metoprolol Succinate [Metoprolol 25 mg PO HS 07/07/24 07/07/24 History Succinate ER] Zolpidem [Ambien] 5 mg PO HS PRN 07/07/24 07/07/24 History diphenhydrAMINE [Benadryl] 50 mg PO BID PRN 07/07/24 07/07/24 History Allergies Allergy/AdvReac Type Severity Reaction Status Date / Time lisinopril AdvReac Cough Verified 07/07/24 08:34 Physical Exam Vitals: Vital Signs Temp Pulse Resp BP BP Pulse Ox 07/08/24 07:00 97.6 F 62 16 126/72 98 07/08/24 04:32 97.4 F L 100 07/08/24 02:00 97.3 F L 94 17 124/85 88 L 07/07/24 22:31 98 F 87 18 134/98 07/07/24 18:55 98.0 F 95 18 150/97 98 07/07/24 14:43 97.5 F L 99 16 153/110 93 L Intake and Output 07/07/24 07/08/24 07/08/24 22:59 06:59 14:59 Intake Total 618 Output Total 4500 Balance -3882 Intake: Oral 118 Hemodialysis 500 Output: Hemodialysis 2500 Hemodialysis Net Amount 2000 Other: # Voids 1 2 Results 07/08/24 10:49 07/08/24 10:49 CBC 07/08/24 Range/Units 10:49 WBC 4.14 L (4.50-10.00) 10*3/uL RBC 3.81 L (4.40-5.60) 10*6/uL Hgb 10.4 L (13.0-17.0) g/dL Hct 33.5 L (39.6-50.0) % Plt Count 146 (140-440) 10*3/uL Comprehensive Metabolic Panel 07/08/24 Range/Units 10:49 Sodium 134 L (137-145) mmol/L Potassium 4.2 (3.5-5.1) mmol/L Chloride 94 L (98-107) mmol/L Carbon Dioxide 31 H (22-30) mmol/L BUN 31 H (9-20) mg/dL Creatinine 5.81 H (0.66-1.25) mg/dL Glucose 130 H (74-99) mg/dL Calcium 9.2 (8.4-10.2) mg/dL Current Medications Generic Name Dose Route Start Last Admin Trade Name Freq PRN Reason Stop Dose Admin Hydrocodone Bitart/Acetaminophen 1 each 07/07/24 15:37 07/08/24 06:35 Hydrocodone/Apap 5-325mg 1 Each Tab PO 1 each Q6HR PRN Administration Analgesia Atorvastatin Calcium 20 mg 07/07/24 21:00 07/07/24 22:35 Atorvastatin 20 Mg Tab PO 20 mg HS FERNANDO Administration Cholecalciferol 50 mcg 07/08/24 09:00 07/08/24 08:31 Cholecalciferol 25 Mcg (1000 Iu) Tablet PO 50 mcg DAILY FERNANDO Administration Diphenhydramine HCl 50 mg 07/07/24 15:37 Diphenhydramine 50 Mg Cap PO BID PRN Itching Hydralazine HCl 25 mg 07/08/24 16:00 Hydralazine Hcl 25 Mg Tab PO TID FERNANDO Metoprolol Succinate 25 mg 07/07/24 21:00 07/07/24 22:35 Metoprolol Succinate (Er) 25 Mg Tab.Er.24h PO 25 mg HS FERNANDO Administration Multivit/Ca Carb/B Cmplx/FA/Prenat 1 each 07/08/24 09:00 07/08/24 08:32 Folic Acid-Vit B Complex-Vit C 1 Cap PO 1 each DAILY FERNANDO Administration Pantoprazole Sodium 40 mg 07/08/24 09:00 Pantoprazole 40 Mg Tablet PO DAILY PRN Acid reflux Sevelamer Carbonate 1,600 mg 07/07/24 17:30 07/08/24 12:50 Sevelamer 800 Mg Tab PO 1,600 mg TID-W/MEALS FERNANDO Administration Zolpidem Tartrate 5 mg 07/07/24 15:37 07/07/24 22:41 Zolpidem 5 Mg Tab PO 5 mg HS PRN Administration Insomnia Intake and Output 07/07/24 07/08/24 07/08/24 22:59 06:59 14:59 Intake Total 618 Output Total 4500 Balance -3882 Intake: Oral 118 Hemodialysis 500 Output: Hemodialysis 2500 Hemodialysis Net Amount 2000 Other: # Voids 1 2 07/08/24 10:49 07/08/24 10:49
--- NOTE | 2024-07-08 13:33 | P.NPCON ---
History of Present Illness - Reason for Consult end stage renal disease - History of Present Illness Patient is a 54-year-old male with hypertension, type 2 diabetes and end-stage renal disease maintained on hemodialysis and transitioning to peritoneal dialysis. The PD catheter is currently not functioning well and patient is admitted for further evaluation and revision. He was also noted to be short of breath with volume overload and states that he is feeling much better today after dialysis yesterday with UF of 2 L. There was concern for possible pleural leak however chest x-ray only showed mild right pleural effusion and mostly pulmonary vascular congestion. Clinically patient's respiratory status has improved significantly with ultrafiltration with hemodialysis yesterday. He is scheduled for surgery on Wednesday for revision of PD catheter with Dr. Dyer. No history of fever chills nausea or vomiting. No significant complaints today Past Medical History Past Medical History: Cancer, Diabetes Mellitus, Dialysis, GERD/Reflux, Hyperlipidemia, Hypertension, Pneumonia Additional Past Medical History / Comment(s): Hx colon cancer 04/24, had chemo and radiation, currently on Keyytruda every 6 weeks, hx osteomyelitis right big toe, neuropathy, hx bilateral kidney transplant due to hereditary polycystic kidney disase, current hemodialysis MOWEFR-left chest port, peritoneal dialysis catheter currently not functioning. History of Any Multi-Drug Resistant Organisms: None Reported Past Surgical History: Ear Surgery, Orthopedic Surgery Additional Past Surgical History / Comment(s): Bilateral kidney transplant 2017, ORIF right wrist, myringotomy/tubes bilateral ears, peritoneal dialysis catheter insertion 05/29/24 Past Anesthesia/Blood Transfusion Reactions: No Reported Reaction Additional Past Anesthesia/Blood Transfusion Reaction / Comment(s): No hx blood transfusion. Smoking Status: Never smoker - Past Family History Mother Family Medical History: No Reported History Medications and Allergies Home Medications Medication Instructions Recorded Confirmed Type Simvastatin 40 mg PO HS 10/08/21 07/07/24 History Omeprazole [PriLOSEC] 20 mg PO DAILY PRN 10/24/21 07/07/24 History Cholecalciferol (Vitamin D3) 50 mcg PO DAILY 05/25/24 07/07/24 History [Vitamin D3 (50 Mcg = 2000 Iu)] Vit B Comp No.3/Folic/C/Biotin 1 each PO DAILY 05/25/24 07/07/24 History [Dixie-Desiree Rx Tablet] Vitamin B-12 (Unknown Dose) 1 tab PO DAILY 05/25/24 07/07/24 History HYDROcodone/APAP 5-325MG [[place] 1 tab PO Q6HR PRN 3 Days #6 tab 05/29/24 07/07/24 Rx 5-325] Sevelamer Carbonate 1,600 mg PO TID-W/MEALS 07/04/24 07/07/24 History Apixaban [Eliquis] 5 mg PO DAILY 07/07/24 07/07/24 History Metoprolol Succinate [Metoprolol 25 mg PO HS 07/07/24 07/07/24 History Succinate ER] Zolpidem [Ambien] 5 mg PO HS PRN 07/07/24 07/07/24 History diphenhydrAMINE [Benadryl] 50 mg PO BID PRN 07/07/24 07/07/24 History Allergies Allergy/AdvReac Type Severity Reaction Status Date / Time lisinopril AdvReac Cough Verified 07/07/24 08:34 Physical Exam Vitals: Vital Signs Temp Pulse Resp BP BP Pulse Ox 07/08/24 07:00 97.6 F 62 16 126/72 98 07/08/24 04:32 97.4 F L 100 07/08/24 02:00 97.3 F L 94 17 124/85 88 L 07/07/24 22:31 98 F 87 18 134/98 07/07/24 18:55 98.0 F 95 18 150/97 98 07/07/24 14:43 97.5 F L 99 16 153/110 93 L Intake and Output 07/07/24 07/08/24 07/08/24 22:59 06:59 14:59 Intake Total 618 Output Total 4500 Balance -3882 Intake: Oral 118 Hemodialysis 500 Output: Hemodialysis 2500 Hemodialysis Net Amount 2000 Other: # Voids 1 2 Patient is awake, comfortable, no acute distress. Examination of the heart S1 and S2 Examination of the lungs bilateral breath sounds are heard Abdomen is soft nontender Examination of lower extremities shows no significant edema [employer] exam grossly intact Results - Lab Results Most recent lab results Calcium 9.2 mg/dL (8.4-10.2) 07/08/24 10:49 07/08/24 10:49 07/08/24 10:49 Assessment and Plan Assessment: 1. End-stage renal disease on hemodialysis, transitioning to peritoneal dialysis but currently with malfunctioning PD catheter, scheduled for revision on 07/10/2024 2. Volume overload 3. History of colon cancer currently maintained on immunotherapy 4. History of failed renal transplant Plan: Hemodialysis on Wednesday mostly for UF Continue Renvela with meals Continue current antihypertensive regimen Thank you for the consultation. Will continue to follow the patient with you during his hospitalization.
--- NOTE | 2024-07-08 14:15 | P.PN ---
Subjective Progress Note Date: 07/08/24 Hospital Course: 54-year-old male with history of hypertension, hyperlipidemia, type 2 diabetes, anal cancer status post chemotherapy and radiation therapy, currently on immunotherapy, end-stage renal disease currently on peritoneal dialysis came to the hospital with concerns for nonfunctioning peritoneal dialysis catheter and was admitted for revision. However while in preop patient had episodes of b igeminy associated with dyspnea and was later admitted under medicine for medical clearance. Patient was recently admitted to [facility] and his ejection fraction that time was 25 to 30%. He was briefly started on Entresto which was discontinued later. Chest x-ray shows small right pleural effusion. Initial lab work shows WBC 5.17, hemoglobin 11.7, BUN 40, creatinine 7.23, NT proBNP more than 300,000. Cardiology, pulmonology and nephrology on board. 07/08/2024 Patient seen and examined at the bedside. No acute events overnight. Patient had a hemodialysis session yesterday with net output of 2 L. Patient reports that he is feeling a lot better. Not complaining of any shortness of breath, c hest pain, nausea, vomiting, abdominal pain. Lab work from today shows WBC 4.14, hemoglobin 10.4, sodium 134, BUN 31, creatinine 5.1, glucose 130 Objective: Vital signs reviewed. General: non toxic, no distress, appears at stated age, normal weight Derm: no unusual rashes/lesions, warm, patient has a left IJ permacath and right upper chest Mediport. Head: atraumatic, normocephalic, symmetric Eyes: EOMI, no lid lag, anicteric sclera, pupils equal round reactive to light ENT: Nose and ears atraumatic Neck: No cervical lymphadenopathy, trachea midline, supple Mouth: no lip lesion, mucus membranes moist Cardiovascular: S1S2 reg, no murmur, positive dorsalis pedis pulse bilateral, no edema Lungs: CTA bilateral, no rhonchi, no rales, no accessory muscle use Abdominal: soft, nontender to palpation, no guarding Ext: muscle strength 5 out of 5 in all 4 extremities grossly, no gross muscle atrophy, no contractures, Neuro: CN II-XI grossly intact, no gross focal neuro deficits Psych: Alert, oriented, appropriate affect Assessment and Plan: #Acute on chronic HFrEF exacerbation likely in the setting of failed peritoneal dialysis, recent echocardiogram with a EF of 25 to 30% #Chemotherapy-induced cardiomyopathy Cardiology on board, note reviewed, appreciate recs Continue with hydralazine 25 mg p.o. 3 times daily Patient will benefit from guideline directed medical therapy Echo ordered #ESRD on peritoneal dialysis, currently malfunctioning #Left kidney transplant x 2 #Volume overload likely secondary to failed peritoneal dialysis Nephrology on board, review, appreciate recs Patient is scheduled for revision of his peritoneal dialysis catheter on Wednesday Hemodialysis session on Wednesday Repeat BMP tomorrow a.m. #Acute approximate respiratory failure, secondary to volume overload in the setting of failed peritoneal dialysis Pulmonology on board No plans for thoracentesis Continue oxygen as needed #Anal cancer, status post on chemotherapy and radiation therapy, currently on immunotherapy Follow-up with oncology outpatient # History of A-fib Continue with Eliquis F: None E: [replete PRN] N: Renal diet A: Ambulatory at baseline DVT ppx: Eliquis Code Status: Full code, discussed with patient Anticipated discharge place: Pending clinical course Anticipated discharge date: Pending clinical course Dictation was produced using [employer] dictation software. Please excuse any grammatical, word or spelling errors. Objective - Vital Signs Vital signs: Vital Signs Temp 97.6 F 07/08/24 07:00 Pulse 62 07/08/24 07:00 Resp 16 07/08/24 07:00 BP 126/72 07/08/24 07:00 Pulse Ox 98 07/08/24 07:00 FiO2 Intake & Output 07/07/24 07/08/24 07/08/24 18:59 06:59 18:59 Intake Total 168 500 Output Total 4500 Balance 168 -4000 Weight 97.2 kg Intake: IV 50 Oral 118 Hemodialysis 500 Output: Hemodialysis 2500 Hemodialysis Net Amount 2000 Other: # Voids 2 - Labs CBC & Chem 7: 07/08/24 10:49 07/08/24 10:49 Labs: Abnormal Lab Results - Last 24 Hours (Table) 07/08/24 07/08/24 Range/Units 10:49 10:49 WBC 4.14 L (4.50-10.00) 10*3/uL RBC 3.81 L (4.40-5.60) 10*6/uL Hgb 10.4 L (13.0-17.0) g/dL Hct 33.5 L (39.6-50.0) % MCHC 31.0 L (32.0-37.0) g/dL RDW 19.4 H (11.5-14.5) % Sodium 134 L (137-145) mmol/L Chloride 94 L (98-107) mmol/L Carbon Dioxide 31 H (22-30) mmol/L BUN 31 H (9-20) mg/dL Creatinine 5.81 H (0.66-1.25) mg/dL Glucose 130 H (74-99) mg/dL
[2024-07-08] MEDS: hydrALAZINE HCL 25 MG TAB PO SCH (16:37)
[2024-07-09 09:59] LABS: BUN/Creat Ratio 5.22 Ratio (12.00-20.00); Blood Urea Nitrogen 38.1 mg/dL (9.0-27.0); Calcium 9.3 mg/dL (8.7-10.3); Carbon Dioxide 27.6 mmol/L (21.6-31.8); Chloride 96 mmol/L (96-109); Glucose 105 mg/dL (70-110); Magnesium 2.2 mg/dL (1.5-2.4); Potassium 4.4 mmol/L (3.5-5.5); Sodium 137 mmol/L (135-145)
--- NOTE | 2024-07-09 10:46 | P.PN ---
Subjective Patient is seen for f/u for ESRD. Scheduled for revision of PD catheter tomorrow. Patient will also be scheduled for a short treatment of hemodialysis tomorrow. No significant complaints today. Objective - Vital Signs Vital signs: Vital Signs Temp 97.4 F L 07/09/24 07:00 Pulse 71 07/09/24 07:00 Resp 16 07/09/24 07:00 BP 124/81 07/09/24 07:00 Pulse Ox 98 07/09/24 07:00 FiO2 Intake & Output 07/08/24 07/09/24 07/09/24 18:59 06:59 18:59 Other: # Voids 1 3 # Bowel Movements 1 - Exam Patient is awake, comfortable, no acute distress. Examination of the heart S1 and S2 Examination of the lungs bilateral breath sounds are heard, decreased breath sounds at the bases Abdomen is soft nontender Examination of lower extremities shows no significant edema SALES AND LEASING AGENT exam grossly intact - Labs CBC & Chem 7: 07/08/24 10:49 07/09/24 03:35 Labs: Abnormal Lab Results - Last 24 Hours (Table) 07/08/24 07/08/24 07/09/24 Range/Units 10:49 10:49 03:35 WBC 4.14 L (4.50-10.00) 10*3/uL RBC 3.81 L (4.40-5.60) 10*6/uL Hgb 10.4 L (13.0-17.0) g/dL Hct 33.5 L (39.6-50.0) % MCHC 31.0 L (32.0-37.0) g/dL RDW 19.4 H (11.5-14.5) % Sodium 134 L (137-145) mmol/L Chloride 94 L (98-107) mmol/L Carbon Dioxide 31 H (22-30) mmol/L Anion Gap 13.40 H (4.00-12.00) mmol/L BUN 31 H 38.1 H (9-20) mg/dL Creatinine 5.81 H 7.3 H (0.66-1.25) mg/dL Est GFR (CKD-EPI) 8 L (>=60) BUN/Creatinine Ratio 5.22 L (12.00-20.00) Ratio Glucose 130 H (74-99) mg/dL Assessment and Plan Assessment: 1. End-stage renal disease on hemodialysis, transitioning to peritoneal dialysis but currently with malfunctioning PD catheter, scheduled for revision on 07/10/2024 2. Volume overload, improved 3. History of colon cancer currently maintained on immunotherapy 4. History of failed renal transplant Plan: Hemodialysis on Wednesday mostly for UF, short treatment Continue Renvela with meals Continue current antihypertensive regimen
--- NOTE | 2024-07-09 11:58 | P.PN ---
Subjective Progress Note Date: 07/09/24 Principal diagnosis: Malfunctioning dialysis catheter Patient doing well today. Still no shortness of breath. Denies pain. No dialysis yesterday or today. Objective - Vital Signs Vital signs: Vital Signs Temp 97.4 F L 07/09/24 07:00 Pulse 71 07/09/24 07:00 Resp 16 07/09/24 07:00 BP 124/81 07/09/24 07:00 Pulse Ox 98 07/09/24 07:00 FiO2 Intake & Output 07/08/24 07/09/24 07/09/24 18:59 06:59 18:59 Other: # Voids 1 3 # Bowel Movements 1 - Exam Abdomen: Soft, nontender, nondistended, areas of swelling related to polycystic kidney Chest: Left dialysis catheter in place, right Port-A-Cath in place, suspect more tubing around the Port-A-Cath than should be there - Labs CBC & Chem 7: 07/08/24 10:49 07/09/24 03:35 Labs: Abnormal Lab Results - Last 24 Hours (Table) 07/08/24 07/09/24 Range/Units 10:49 03:35 WBC 4.14 L (4.50-10.00) 10*3/uL RBC 3.81 L (4.40-5.60) 10*6/uL Hgb 10.4 L (13.0-17.0) g/dL Hct 33.5 L (39.6-50.0) % MCHC 31.0 L (32.0-37.0) g/dL RDW 19.4 H (11.5-14.5) % Anion Gap 13.40 H (4.00-12.00) mmol/L BUN 38.1 H (9.0-27.0) mg/dL Creatinine 7.3 H (0.6-1.5) mg/dL Est GFR (CKD-EPI) 8 L (>=60) BUN/Creatinine Ratio 5.22 L (12.00-20.00) Ratio Assessment and Plan (1) Renal failure Narrative/Plan: Patient doing well. Will proceed with laparoscopic peritoneal dialysis catheter revision tomorrow. Will remove the patient's Port-A-Cath simultaneous to that. Current Visit: No Status: Acute Code(s): N19 - UNSPECIFIED KIDNEY FAILURE SNOMED Code(s): 52900551
--- NOTE | 2024-07-09 12:32 | P.PN ---
Subjective Progress Note Date: 07/09/24 HISTORY OF PRESENTING ILLNESS: 54-year-old with past medical history of hypertension dyslipidemia type 2 d iabetes cardiomyopathy end-stage renal disease on peritoneal dialysis presented to the hospital because of nonfunctional peritoneal dialysis catheter. He was seeing his surgeon on an outpatient basis for revision of peritoneal dialysis catheter however he was deemed not appropriate for the procedure because of significant shortness of breath and generalized weakness. He was also noticed to have bigeminy on his monitoring coordinator. For this he was admitted. His last echo from March 2024 showed an EF of 25 to 30% and was placed on Entresto and later discontinued. Patient is otherwise a poor historian. Currently on admission hemoglobin 11.7, creatinine 7.25, NT-proBNP 300K, Chest x-ray shows very small right pleural effusion however no significant congestion history of fluid overload Yesterday patient got hemodialysis through his Gadiel dialysis catheter, and postdialysis his blood pressure is better controlled and he reports his symptoms of shortness of breath and generalized fatigue is improved. He reports much better. Blood pressure and heart rate is much better controlled, SBP 126/72 today. Progress note 07/09/2024 Patient is seen and examined at bedside this a.m. Denies any chest pain chest pressure shortness of breath. Hemodynamically stable. No new cardiovascular symptoms. Blood pressure is better controlled. PHYSICAL EXAMINATION: Neck: Brisk carotid upstroke, no jugular venous distention. Lungs: Clear to auscultation. Heart: Regular rate and rhythm, S1-S2, , no murmur or rub. Abdomen: Soft nontender, distended, bowel sounds. Extremities: No edema, intact distal pulses. Neuro: Alert, oritented, no focal deficits. Detailed neuro exam was not performed. 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 Resume 5 mg twice daily once the surgery is done He is on Lipitor 20 mg, metoprolol 25 mg, will continue. For blood pressure control start Entresto 24/26 mg twice daily and hydralazine 25 mg 3 times daily Uptitrate hydralazine as needed. Avoid as needed medications. Patient is clear to undergo revision of peritoneal dialysis catheter from cardiovascular standpoint. On outpatient basis to evaluate if he would benefit from being on Entresto Objective - Vital Signs Vital signs: Vital Signs Temp 97.4 F L 07/09/24 07:00 Pulse 71 07/09/24 07:00 Resp 16 07/09/24 07:00 BP 124/81 07/09/24 07:00 Pulse Ox 98 07/09/24 07:00 FiO2 Intake & Output 07/08/24 07/09/24 07/09/24 18:59 06:59 18:59 Other: # Voids 1 3 # Bowel Movements 1 - Labs CBC & Chem 7: 07/08/24 10:49 07/09/24 03:35 Labs: Abnormal Lab Results - Last 24 Hours (Table) 07/09/24 Range/Units 03:35 Anion Gap 13.40 H (4.00-12.00) mmol/L BUN 38.1 H (9.0-27.0) mg/dL Creatinine 7.3 H (0.6-1.5) mg/dL Est GFR (CKD-EPI) 8 L (>=60) BUN/Creatinine Ratio 5.22 L (12.00-20.00) Ratio
--- NOTE | 2024-07-09 13:00 | P.PN ---
Subjective Progress Note Date: 07/09/24 54-year-old male with history of hypertension, hyperlipidemia, diabetes mellitus, cardiomyopathy, end-stage renal disease, currently on peritoneal dialysis presents to the hospital for concerns about nonfunctioning peritoneal dialysis catheter; patient has been brought to the hospital electively for alejandra ion of the catheter. While in preop, patient had episodes of bigeminy on the monitor and reported dyspnea and had to be brought in via wheelchair; given episodes of bigeminy and complaints of dyspnea, hospital medicine was contacted for medical clearance. Patient reports he was admitted to [facility] in March 2024 for chest pain at which she was found to have ejection fraction of 25 to 30% and patient was initially placed on Entresto which was later discontinued; patient is a poor historian and not sure of the recommendations from the senior fund accountant at that time and why Entresto was discontinued upon follow-up Chest x-ray recently done, showed small right-sided pleural effusion. It does appear that he has some fluid overload though, from his underlying renal failure. -- Current laboratory data includes a white count of 5.2, hemoglobin 11.7, hematocrit 37.4, and a platelet count of 177,000. Potassium 4.6, BUN 40, creatinine 7.23. His N-terminal proBNP is greater than 300,000. Glucose is 116. Chest x-ray confirms cardiomegaly, pulmonary vascular congestion, and a very small right-sided pleural effusion. The patient denies a prior history of lung disease. The patient is a non-smoker. Given complaint of dyspnea and pleural effusion along with pulmonary vascular co ngestion, cardiology and pulmonary services consulted 07/09/2024 Patient seen and evaluated resting comfortably in bed; reports marked improvement in pain Vital signs are reviewed and are stable Acute on chronic HFrEF exacerbation; likely related to failed peritoneal dialysi s, currently improved after hemodialysis ESRD; patient is currently on hemodialysis; plan for revision of peritoneal dialysis catheter on Wednesday; Eliquis to be held for the procedure for tomorrow; resume after surgery is done -Patient has been evaluated by cardiology and has been placed back on Entresto 24-26 mg twice daily and hydralazine 25 mg 3 times daily Objective - Vital Signs Vital signs: Vital Signs Temp 97.4 F L 07/09/24 07:00 Pulse 71 07/09/24 07:00 Resp 16 07/09/24 07:00 BP 124/81 07/09/24 07:00 Pulse Ox 98 07/09/24 07:00 FiO2 Intake & Output 07/08/24 07/09/24 07/09/24 18:59 06:59 18:59 Other: # Voids 1 3 # Bowel Movements 1 - Exam No acute distress, oriented 3. No respiratory distress. Currently on room air. Saturation is 96%. HEENT examination is grossly unremarkable. Mucous membranes are moist. No oral lesions. Neck supple. Full range of motion. No adenopathy thyromegaly or neck vein distention. Cardiovascular examination reveals regular rhythm rate. S1-S2 normal. No S3 or S4. No discernible murmur noted. Lungs reveal bibasilar crackles. No wheezes. No rhonchi. Breath sounds are equal. Abdomen soft bowel sounds are heard. No masses or tenderness. Extremities are intact. No cyanosis clubbing or edema. Skin is without rash or lesion. Neurologic examination is brief but nonfocal. - Labs CBC & Chem 7: 07/08/24 10:49 07/09/24 03:35 Labs: Abnormal Lab Results - Last 24 Hours (Table) 07/08/24 07/08/24 07/09/24 Range/Units 10:49 10:49 03:35 WBC 4.14 L (4.50-10.00) 10*3/uL RBC 3.81 L (4.40-5.60) 10*6/uL Hgb 10.4 L (13.0-17.0) g/dL Hct 33.5 L (39.6-50.0) % MCHC 31.0 L (32.0-37.0) g/dL RDW 19.4 H (11.5-14.5) % Sodium 134 L (137-145) mmol/L Chloride 94 L (98-107) mmol/L Carbon Dioxide 31 H (22-30) mmol/L Anion Gap 13.40 H (4.00-12.00) mmol/L BUN 31 H 38.1 H (9-20) mg/dL Creatinine 5.81 H 7.3 H (0.66-1.25) mg/dL Est GFR (CKD-EPI) 8 L (>=60) BUN/Creatinine Ratio 5.22 L (12.00-20.00) Ratio Glucose 130 H (74-99) mg/dL Assessment and Plan Assessment: 1. Cardiac arrhythmia/bigeminy --While in preop, environmental monitoring technician revealed episodes of bigeminy; patient remained asymptomatic at that time - EKG was completed which revealed first-degree AV block and some ST and T wave changes; no prior EKG available for comparison - Will consult cardiology 2. Dyspnea on exertion - Chest x-ray reveals pulmonary vascular congestion and small right-sided pleural effusion - Patient has been evaluated by pulmonary service and thoracentesis is not recommended at this time - Will order BNP - Patient to have revision of dialysis catheter; nephrology on board for resuming dialysis - Dyspnea and fluid overload expected to improve once dialysis is resumed 3. Malfunctioning peritoneal dialysis catheter; General Surgery on board for revision of catheter 4. ESRD/PD; patient is currently on hemodialysis with plans to resume PD once dialysis catheter is replaced; nephrology is consulted - Will continue with home dose of sevelamer 1600 mg p.o. 3 times daily with meals 5. Hypertension; metoprolol 25 mg p.o. nightly 6. Hyperlipidemia; simvastatin 40 mg daily 7. DVT; patient takes Eliquis 8. History of failed renal transplant x 2 DVT prophylaxis; SCDs CODE STATUS; full code
[2024-07-09] MEDS: diphenhydrAMINE 50 MG CAP PO PRN (21:50)
--- NOTE | 2024-07-10 11:23 | P.PN ---
Subjective HISTORY OF PRESENTING ILLNESS: 54-year-old with past medical history of hypertension dyslipidemia type 2 diabetes cardiomyopathy end-stage renal disease on peritoneal dialysis presented to the hospital because of nonfunctional peritoneal dialysis catheter. He was seeing his surgeon on an outpatient basis for revision of peritoneal dialysis catheter however he was deemed not appropriate for the procedure because of significant shortness of breath and generalized weakness. He was also noticed to have bigeminy on his yard rigger. For this he was admitted. His last echo from March 2024 showed an EF of 25 to 30% and was placed on Entresto and later discontinued. Patient is otherwise a poor historian. Currently on admission hemoglobin 11.7, creatinine 7.25, NT-proBNP 300K. Chest x-ray shows very small right pleural effusion however no significant congestion history of fluid overload Progress note 07/09/2024 Patient is seen and examined at bedside this a.m. Denies any chest pain chest pressure shortness of breath. Hemodynamically stable. No new cardiovascular symptoms. Blood pressure is better controlled. 07/10/2024 Patient seen and examined resting comfortably in bed undergoing hemodialysis. Blood pressure 134/94 heart rate 79 afebrile maintaining oxygen saturation on room air. He is scheduled today with Dr. Stephens to undergo peritoneal dialysis catheter revision. PHYSICAL EXAMINATION: Neck: Brisk carotid upstroke, no jugular venous distention. Lungs: Clear to auscultation. Heart: Regular rate and rhythm, S1-S2, , no murmur or rub. Abdomen: Soft nontender, distended, bowel sounds. Extremities: No edema, intact distal pulses. Neuro: Alert, oritented, no focal deficits. Detailed neuro exam was not performed. 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 Uptitrate hydralazine as needed. Avoid as needed medications. Patient is clear to undergo revision of peritoneal dialysis catheter from cardiovascular standpoint. Stable for discharge from a cardiac perspective follow-up in the office as planned. Nurse Practitioner note has been reviewed, I agree with a documented findings and plan of care. Patient was seen and examined. Objective - Vital Signs Vital signs: Vital Signs Temp 97.8 F 07/10/24 07:00 Pulse 79 07/10/24 10:24 Resp 16 07/10/24 07:00 BP 134/94 07/10/24 10:24 Pulse Ox 100 07/10/24 10:24 FiO2 Intake & Output 07/09/24 07/10/24 07/10/24 18:59 06:59 18:59 Other: Voiding Method Toilet # Voids 1 - Labs CBC & Chem 7: 07/08/24 10:49 07/09/24 03:35
--- NOTE | 2024-07-10 13:01 | P.PN ---
Subjective Patient is seen for f/u for ESRD. Scheduled for revision of PD catheter today Status post hemodialysis this morning with UF of 2 L. No significant complaints today. Objective - Vital Signs Vital signs: Vital Signs Temp 97.8 F 07/10/24 12:52 Pulse 76 07/10/24 12:52 Resp 16 07/10/24 12:52 BP 132/98 07/10/24 12:52 Pulse Ox 95 07/10/24 12:52 FiO2 Intake & Output 07/09/24 07/10/24 07/10/24 18:59 06:59 18:59 Other: Voiding Method Toilet # Voids 1 - Exam Patient is awake, comfortable, no acute distress. Examination of the heart S1 and S2 Examination of the lungs bilateral breath sounds are heard, decreased breath sounds at the bases Abdomen is soft nontender Examination of lower extremities shows no significant edema SPEECH LANGUAGE PATHOLOGIST TRAVEL exam grossly intact - Labs CBC & Chem 7: 07/08/24 10:49 07/09/24 03:35 Assessment and Plan Assessment: 1. End-stage renal disease on hemodialysis, transitioning to peritoneal dial ysis but currently with malfunctioning PD catheter, scheduled for revision on Wednesday today 2. Volume overload, improved 3. History of colon cancer currently maintained on immunotherapy 4. History of failed renal transplant Plan: Stable for discharge from nephrology standpoint if cleared by surgery Continue Renvela with meals Continue current antihypertensive regimen
[2024-07-10] MEDS: IV FLUID CONTINUATION 1,000 ML IV ONE (13:05)
[2024-07-10 13:11] LABS: Glucose,Whole Blood 89 mg/dL (70-110)
[2024-07-10] MEDS: ONDANSETRON 4 MG/2 ML VIAL IVP STA (13:26)
[2024-07-10] MEDS: SODIUM CHLORIDE 0.9% 1,000 ML IV ONE (13:39)
[2024-07-10] MEDS: HEPARIN SODIUM,PORCINE 5,000 UNIT/ML 1 ML VIAL SQ STA (13:39)
[2024-07-10] MEDS ORDERED: LIDOCAINE 1% INJ 10MG/ML (20 ML MDV) ONE (15:13)
[2024-07-10] MEDS ORDERED: SUCCINYLCHOLINE CHLORIDE 200 MG/10 ML VIAL IV ONE (15:13)
[2024-07-10] MEDS ORDERED: PHENYLEPHRINE 10 MG/ML VIAL ONE (15:13)
[2024-07-10] MEDS ORDERED: PROPOFOL 10 MG/ML 20 ML VIAL IV ONE (15:13)
[2024-07-10] MEDS ORDERED: NEOSTIGMINE 1 MG/ML 10 ML VIAL ONE (15:13)
[2024-07-10] MEDS ORDERED: GLYCOPYRROLATE 0.2 MG/ML 2 ML VIAL ONE (15:13)
[2024-07-10] MEDS ORDERED: fentaNYL (PF) 50 MCG/ML 2 ML AMP ONE (15:13)
[2024-07-10] MEDS ORDERED: MIDAZOLAM 2 MG/2 ML VIAL ONE (15:13)
[2024-07-10] MEDS ORDERED: ROCURONIUM 10 MG/ML (5 ML VIAL) IV ONE (15:13)
[2024-07-10] MEDS: SODIUM CHLORIDE 0.9% 50 ML with ceFAZolin 2,000 MG IV ONE (15:18)
[2024-07-10] MEDS: BUPIVACAINE (PF) 0.25% 30 ML VIAL SQ ONE ×2 (15:46)
--- NOTE | 2024-07-10 15:47 | P.PN ---
Subjective Progress Note Date: 07/10/24 Hospital Course: 54-year-old male with history of hypertension, hyperlipidemia, type 2 diabetes, anal cancer status post chemotherapy and radiation therapy, currently on immunotherapy, end-stage renal disease currently on peritoneal dialysis came to the hospital with concerns for nonfunctioning peritoneal dialysis catheter and was admitted for revision. However while in preop patient had episodes of b igeminy associated with dyspnea and was later admitted under medicine for medical clearance. Patient was recently admitted to [facility] and his ejection fraction that time was 25 to 30%. He was briefly started on Entresto which was discontinued later. Chest x-ray shows small right pleural effusion. Initial lab work shows WBC 5.17, hemoglobin 11.7, BUN 40, creatinine 7.23, NT proBNP more than 300,000. Cardiology, pulmonology and nephrology on board. 07/08/2024 Patient seen and examined at the bedside. No acute events overnight. Patient had a hemodialysis session yesterday with net output of 2 L. Patient reports that he is feeling a lot better. Not complaining of any shortness of breath, c hest pain, nausea, vomiting, abdominal pain. Lab work from today shows WBC 4.14, hemoglobin 10.4, sodium 134, BUN 31, creatinine 5.1, glucose 130 07/10/2024 Patient seen and examined at the bedside. No acute events overnight. Patient had hemodialysis session today this morning with output of 2 L. Patient will be going for revision of his peritoneal dialysis catheter today. His Eliquis has been on hold. Objective: Vital signs reviewed. General: non toxic, no distress, appears at stated age, normal weight Derm: no unusual rashes/lesions, warm, patient has a left IJ permacath and righ t upper chest Mediport. Head: atraumatic, normocephalic, symmetric Eyes: EOMI, no lid lag, anicteric sclera, pupils equal round reactive to light ENT: Nose and ears atraumatic Neck: No cervical lymphadenopathy, trachea midline, supple Mouth: no lip lesion, mucus membranes moist Cardiovascular: S1S2 reg, no murmur, positive dorsalis pedis pulse bilateral, no edema Lungs: CTA bilateral, no rhonchi, no rales, no accessory muscle use Abdominal: soft, nontender to palpation, no guarding Ext: muscle strength 5 out of 5 in all 4 extremities grossly, no gross muscle atrophy, no contractures, Neuro: CN II-XI grossly intact, no gross focal neuro deficits Psych: Alert, oriented, appropriate affect Assessment and Plan: #Acute on chronic HFrEF exacerbation likely in the setting of failed peritoneal dialysis, recent echocardiogram with a EF of 25 to 30% #Chemotherapy-induced cardiomyopathy Cardiology on board, note reviewed, appreciate recs Continue with hydralazine 25 mg p.o. 3 times daily Patient will benefit from guideline directed medical therapy Echo ordered #ESRD on peritoneal dialysis, currently malfunctioning #Left kidney transplant x 2 #Volume overload likely secondary to failed peritoneal dialysis Nephrology on board, review, appreciate recs Patient is scheduled for revision of his peritoneal dialysis catheter today Hemodialysis session on Wednesday Repeat BMP tomorrow a.m. #Acute approximate respiratory failure, secondary to volume overload in the setting of failed peritoneal dialysis Pulmonology on board No plans for thoracentesis Continue oxygen as needed #Anal cancer, status post on chemotherapy and radiation therapy, currently on immunotherapy Follow-up with oncology outpatient # History of A-fib Hold Eliquis today anticipation for procedure, resume after completion of procedure. F: None E: [replete PRN] N: Renal diet A: Ambulatory at baseline DVT ppx: Eliquis Code Status: Full code, discussed with patient Anticipated discharge place: Pending clinical course Anticipated discharge date: Pending clinical course Dictation was produced using [employer] dictation software. Please excuse any grammatical, word or spelling errors. Objective - Vital Signs Vital signs: Vital Signs Temp 98 F 07/10/24 14:43 Pulse 76 07/10/24 12:52 Resp 18 07/10/24 14:43 BP 143/106 07/10/24 14:43 Pulse Ox 95 07/10/24 12:52 FiO2 Intake & Output 07/09/24 07/10/24 07/10/24 18:59 06:59 18:59 Intake Total 550 Output Total 4500 Balance -3950 Intake: IV 50 Hemodialysis 500 Output: Hemodialysis 2500 Hemodialysis Net Amount 2000 Other: Voiding Method Toilet # Voids 1 - Labs CBC & Chem 7: 07/11/24 04:43 07/11/24 04:43 Assessment and Plan Assessment: Attestation Attestation/ Shoe Stitcher Note: Attestation to Progress Note, Participation (I saw and evaluated the patient with the Resident, and I reviewed and discussed the patient with the Resident and agree with the Resident's findings and plans as documented above., management reviewed and discussed), I agree with findings & plan, Provider Signature (KYLE RAMIREZ, XIOMARA Mathur. Time with Patient: Greater than 30
--- NOTE | 2024-07-10 16:16 | P.OP ---
Date of Procedure: 07/10/24 Procedure(s) Performed: PREOPERATIVE DIAGNOSIS: Malfunctioning peritoneal dialysis catheter, malfunctioning Port-A-Cath POSTOPERATIVE DIAGNOSIS: Same PROCEDURE: Laparoscopic revision peritoneal dialysis catheter, Port-A-Cath removal SURGEON: Gomez EBL: 5 cc ANESTHESIA: General COMPLICATIONS: None OPERATIVE PROCEDURE: Patient was placed in the supine position. The patient was placed under general anesthesia at that time. The abdomen and chest were prepped and draped sterilely. A 5 mm optical trocar was used to enter the peritoneal cavity in the left upper quadrant. Full insufflation took place to 15 mm. 2 additional 5 mm trocars were placed in the left lateral upper quadrant under direct visualization. The patient's catheter was loosely adherent to the deep pelvis. This was able to be grasped and pulled into the operative field without difficulty. There did not appear to be any adhesions to the catheter or fibrin filling the catheter. The patient's left kidney was taking up a large amount of the retroperitoneum and pushing into the peritoneal cavity significantly. This is certainly limiting the overall volume of the peritoneal cavity. The catheter was cut proximal to the Luer-Phil adapter. A new Luer-Phil adapter was applied. The catheter was flushed with saline. Easy flow through the catheter was noted. There was no fibrin in the catheter. I then loosely sutured the catheter to the midline of the pelvis using a 2-0 Vicryl stitch and this was tied down loosely using a tie knot device. The adapter was then connected to the catheter. The pneumoperitoneum was evacuated. The skin at these 3 incisions were closed using interrupted 4-0 Monocryl sutures. Skin glue was later applied. The Port-A-Cath right chest wall was then addressed. A horizontal incision was made through the prior Port-A-Cath insertion incision. The port was removed without difficulty. The length of the catheter was quite short however it did appear that the entirety of the catheter was there as I was able to visualize the 5 and 10 cm seema on the catheter. The subcutaneous tissues were closed using 3-0 Vicryl sutures. The skin was reapproximated using 4-0 Monocryl sutures. Skin glue was then applied. DISPOSITION: Stable to recovery room
[2024-07-10 16:44] LABS: Glucose,Whole Blood 113 mg/dL (70-110)
[2024-07-10] MEDS: ceFAZolin 2 GM in DEXTROSE 5% IN WATER 50 ML IVPB ONE (17:13)
--- NOTE | 2024-07-10 17:22 | CA ---
Transthoracic Echo Report Name: Thang Wheeler Age: 54 Gender: M : 1970 Exam Date: 07/10/2024 10:59 Exam Location: [facility] Ht (in): 80 Wt (lb): 214 Ordering Physician: Mac Hill MD ([id number]) Attending/Referring Phys: Relay Tester Abril Espinosa RDCS Procedure CPT: Indications: chf exacerbation Cardiac Hx: Technical Quality: Good Contrast 1: Definity Total Dose (mL): 5 Contrast 2: Total Dose (mL): MEASUREMENTS (Male / Female) Normal Values 2D ECHO LV Diastolic Diameter PLAX 7.5 cm 4.2 - 5.9 / 3.9 - 5.3 cm LV Systolic Diameter PLAX 5.8 cm IVS Diastolic Thickness 1.5 cm 0.6 - 1.0 / 0.6 - 0.9 cm LVPW Diastolic Thickness 1.1 cm 0.6 - 1.0 / 0.6 - 0.9 cm LV Relative Wall Thickness 0.3 LVOT Diameter 2.7 cm LV Diastolic Volume MOD BP 292.7 cm??? 67 - 155 / 56 - 104 cm??? LV Systolic Volume MOD BP 224.8 cm??? 22 - 58 / 19 - 49 cm??? LV Ejection Fraction MOD BP 23.2 % >= 55 % LV Cardiac Index MOD BP 2152.1 cm???/min???m??? LV Diastolic Volume MOD 4C 260.6 cm??? LV Systolic Volume MOD 4C 198.9 cm??? LV Ejection Fraction MOD 4C 23.7 % LV Cardiac Index MOD 4C 1953.1 cm???/min???m??? LV Diastolic Length 4C 10.6 cm LV Systolic Length 4C 9.9 cm LV Diastolic Volume MOD 2C 311.3 cm??? LV Systolic Volume MOD 2C 247.7 cm??? LV Ejection Fraction MOD 2C 20.4 % LV Cardiac Index MOD 2C 2013.0 cm???/min???m??? LV Diastolic Length 2C 11.2 cm LV Systolic Length 2C 10.2 cm LA Volume 130.1 cm??? 18 - 58 / 22 - 52 cm??? LA Volume Index 55.7 cm???/m??? 16 - 28 cm???/m??? DOPPLER AV Peak Velocity 93.4 cm/s AV Peak Gradient 3.5 mmHg AV Mean Velocity 70.3 cm/s AV Mean Gradient 2.2 mmHg AV Velocity Time Integral 17.0 cm LVOT Peak Velocity 84.3 cm/s LVOT Peak Gradient 2.8 mmHg LVOT Velocity Time Integral 12.3 cm LVOT Stroke Volume 70.9 cm??? LVOT Stroke Volume Index 29.9 ml/m??? LVOT Cardiac Index 2244.8 cm???/min???m??? AV Area Cont Eq vti 4.2 cm??? AV Area Cont Eq pk 5.2 cm??? MV Area PHT 6.9 cm??? Mitral E Point Velocity 52.8 cm/s Mitral A Point Velocity 26.5 cm/s Mitral E to A Ratio 2.0 MV Deceleration Time 110.2 ms TR Peak Velocity 337.5 cm/s TR Peak Gradient 45.6 mmHg Right Atrial Pressure 15.0 mmHg Pulmonary Artery Systolic Pressu 60.6 mmHg Right Ventricular Systolic Press 60.6 mmHg PV Peak Velocity 48.5 cm/s PV Peak Gradient 0.9 mmHg FINDINGS Left Ventricle Left ventricular ejection fraction is estimated at 20 %. Moderately increased septal wall thickness. Severely increased left ventricular diastolic diameter. Severely increased left ventricular diastolic volume. Severely increased left ventricular systolic volume. Severely decreased left ventricular ejection fraction. Severely reduced global left ventricular systolic function. Right Ventricle Severe right ventricular dilatation. Moderately reduced right ventricular global systolic function. Severe pulmonary hypertension. Right ventricular systolic pressure estimated at 61 mm hg. Right Atrium Severe right atrial dilatation. Left Atrium Severely increased left atrial volume. Mildly increased left atrial area. Mitral Valve Mitral valve thickened. No evidence for mitral valve prolapse. No mitral stenosis. Mild mitral regurgitation. Aortic Valve Trileaflet aortic valve. No aortic stenosis. Trace aortic regurgitation. Tricuspid Valve Structurally normal tricuspid valve. No tricuspid stenosis. Moderate tricuspid regurgitation. Pulmonic Valve Structurally normal pulmonic valve. No pulmonic stenosis. Trace pulmonic regurgitation. Pericardium Small pericardial effusion. Aorta Normal size aortic root and proximal ascending aorta. CONCLUSIONS Enlarged left ventricle with a global decrease in contractility estimate ejection fraction of 20%. Enlarged right ventricle as well as both atria. Mild mitral and moderate tricuspid regurgitation. Moderate to severe pulmonary hypertension probably small pericardial effusion. Previewed by: Dr. Juan Lester MD (Electronically Signed) Final Date: 10 Jul 2024 17:22
[2024-07-11 05:11] LABS: HCT 35.8 % (39.6-50.0); HGB 11.1 g/dL (13.0-17.0); MCH 27.6 pg (27.0-32.0); MCV 89.1 fL (80.0-97.0); Mean Platelet Volume 10.9 fL (9.5-12.2); Platelet Count 192 10*3/uL (140-440); RBC 4.02 10*6/uL (4.40-5.60); RDW 18.8 % (11.5-14.5); WBC 5.48 10*3/uL (4.50-10.00)
[2024-07-11 05:42] LABS: African American GFR (CKD) 8 (>60 ml/min/1.73 sqM); Anion Gap 14 mmol/L; Blood Urea Nitrogen 51 mg/dL (9-20); Calcium 9.2 mg/dL (8.4-10.2); Carbon Dioxide 21 mmol/L (22-30); Chloride 95 mmol/L (98-107); Glucose 102 mg/dL (74-99); Non-African American GFR(CKD) 7 (>60 ml/min/1.73 sqM); Potassium 5.3 mmol/L (3.5-5.1); Sodium 130 mmol/L (137-145)
[2024-07-11 07:48] VITALS: BP 125/89; PULSE 79; RESP 14; TEMP 97.6
[2024-07-11] MEDS: APIXABAN 2.5 MG TABLET PO SCH (09:51)
--- NOTE | 2024-07-11 10:55 | P.PN ---
Subjective HISTORY OF PRESENTING ILLNESS: 54-year-old with past medical history of hypertension dyslipidemia type 2 diabetes cardiomyopathy end-stage renal disease on peritoneal dialysis presented to the hospital because of nonfunctional peritoneal dialysis catheter. He was seeing his surgeon on an outpatient basis for revision of peritoneal dialysis catheter however he was deemed not appropriate for the procedure because of significant shortness of breath and generalized weakness. 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 For this he was admitted. His last echo from March 2024 showed an EF of 25 to 30% and was placed on Entresto and later discontinued. Patient is otherwise a poor historian. Currently on admission hemoglobin 11.7, creatinine 7.25, NT-proBNP 300K. Chest x-ray shows very small right pleural effusion however no significant congestion history of fluid overload Progress note 07/09/2024 Patient is seen and examined at bedside this a.m. Denies any chest pain chest pressure shortness of breath. Hemodynamically stable. No new cardiovascular symptoms. Blood pressure is better controlled. 07/10/2024 Patient seen and examined resting comfortably in bed undergoing hemodialysis. Blood pressure 134/94 heart rate 79 afebrile maintaining oxygen saturation on room air. He is scheduled today with Dr. Stephens to undergo peritoneal dialysis catheter revision. 07/11/2024 Patient underwent peritoneal dialysis catheter revision yesterday with Dr. Dyer. He is seen and examined sitting up eating breakfast. He is anxious to go home. Blood pressure 125/89 heart rate 79 afebrile maintaining oxygen saturation on room air. PHYSICAL EXAMINATION: Neck: Brisk carotid upstroke, no jugular venous distention. Lungs: Clear to auscultation. Heart: Regular rate and rhythm, S1-S2, , no murmur or rub. Abdomen: Soft nontender, distended, bowel sounds. Extremities: No edema, intact distal pulses. Neuro: Alert, oritented, no focal deficits. Detailed neuro exam was not performed. 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 Stable for discharge from a cardiac perspective follow-up in the office as planned. Nurse Practitioner note has been reviewed, I agree with a documented findings and plan of care. Patient was seen and examined. Objective - Vital Signs Vital signs: Vital Signs Temp 97.6 F 07/11/24 07:15 Pulse 79 07/11/24 07:15 Resp 14 07/11/24 07:15 BP 125/89 07/11/24 07:15 Pulse Ox 96 07/11/24 07:15 FiO2 Intake & Output 07/10/24 07/11/24 07/11/24 18:59 06:59 18:59 Intake Total 650 Output Total 4505 Balance -3855 Intake: IV 150 Hemodialysis 500 Output: Hemodialysis 2500 Hemodialysis Net Amount 2000 Estimated Blood Loss 5 Other: Voiding Method Toilet Toilet Toilet # Voids 2 1 # Bowel Movements 0 - Labs CBC & Chem 7: 07/11/24 04:43 07/11/24 04:43 Labs: Abnormal Lab Results - Last 24 Hours (Table) 07/10/24 07/11/24 07/11/24 Range/Units 16:43 04:43 04:43 RBC 4.02 L (4.40-5.60) 10*6/uL Hgb 11.1 L (13.0-17.0) g/dL Hct 35.8 L (39.6-50.0) % MCHC 31.0 L (32.0-37.0) g/dL RDW 18.8 H (11.5-14.5) % Sodium 130 L (137-145) mmol/L Potassium 5.3 H (3.5-5.1) mmol/L Chloride 95 L (98-107) mmol/L Carbon Dioxide 21 L (22-30) mmol/L BUN 51 H (9-20) mg/dL Creatinine 7.90 H* (0.66-1.25) mg/dL Glucose 102 H (74-99) mg/dL POC Glucose (mg/dL) 113 H (70-110) mg/dL
--- NOTE | 2024-07-11 10:57 | P.DS ---
Providers Date of admission: 07/07/24 08:00 Attending physician: Tyra Zuleta Consults: 07/07/24 10:42 Consult Physician Routine Consulting Provider: Adin Dyer Consult Reason/Comments: Peritoneal Dialysis catheter Do you want consulting provider notified?: Already Contacted 07/07/24 11:52 Consult Physician Routine Consulting Provider: Daniel Arndt Consult Reason/Comments: Cardiology history Do you want consulting provider notified?: Yes 07/07/24 14:37 Consult Physician Routine Consulting Provider: Anibal Parnell Consult Reason/Comments: pleural effusion Do you want consulting provider notified?: Yes Consult Physician Routine Consulting Provider: Teresa Hogan Consult Reason/Comments: renal failure Do you want consulting provider notified?: Yes Primary care physician: Estrella Batista DO Hospital Course: Discharge Diagnosis: #ESRD on peritoneal dialysis, revision done on 07/10/2024 #Left kidney transplant x 2 #Volume overload likely secondary to failed peritoneal dialysis #Acute on chronic HFrEF exacerbation likely in the setting of failed peritoneal dialysis, recent echocardiogram with a EF of 25 to 30% #Chemotherapy-induced cardiomyopathy #Acute hypoxemic respiratory failure, secondary to volume overload in the setting of failed peritoneal dialysis, resolved #Anemia cancer, status post on chemotherapy and radiation therapy, currently on immunotherapy #History of A-fib, on [facility] Hospital Course: 54-year-old male with history of hypertension, hyperlipidemia, type 2 diabetes, anal cancer status post chemotherapy and radiation therapy, currently on immunotherapy, end-stage renal disease currently on peritoneal dialysis came to the hospital with concerns for nonfunctioning peritoneal dialysis catheter and was admitted for revision. However while in preop patient had episodes of bigeminy associated with dyspnea and was later admitted under medicine for medical clearance. Patient was recently admitted to [facility] and his ejection fraction that time was 25 to 30%. He was briefly started on Entresto which was discontinued later. Chest x-ray shows small right pleural effusion. Initial lab work shows WBC 5.17, hemoglobin 11.7, BUN 40, creatinine 7.23, NT proBNP more than 300,000. Cardiology, pulmonology and nephrology on board. Patient had a session of hemodialysis done. In the interval, surgery was consulted patient underwent revision for his peritoneal dialysis catheter on 07/10/2024. No postop complications. Patient has been cleared for discharge per surgery and nephrology. Patient is scheduled to undergo session of hemodialysis on 07/12/2024. He will follow-up with his PCP and general surgery within a week postdischarge. Discharge disposition: Home Vital signs reviewed. General: non toxic, no distress, appears at stated age, normal weight Derm: no unusual rashes/lesions, warm, patient has a left IJ permacath and right upper chest Mediport. Head: atraumatic, normocephalic, symmetric Eyes: EOMI, no lid lag, anicteric sclera, pupils equal round reactive to light ENT: Nose and ears atraumatic Neck: No cervical lymphadenopathy, trachea midline, supple Mouth: no lip lesion, mucus membranes moist Cardiovascular: S1S2 reg, no murmur, positive dorsalis pedis pulse bilateral, no edema Lungs: CTA bilateral, no rhonchi, no rales, no accessory muscle use Abdominal: soft, nontender to palpation, no guarding, right lower quadrant. Peritoneal dialysis catheter present and is intact. Ext: muscle strength 5 out of 5 in all 4 extremities grossly, no gross muscle atrophy, no contractures, Neuro: CN II-XI grossly intact, no gross focal neuro deficits Psych: Alert, oriented, appropriate affect Dictation was produced using [employer] dictation software. Please excuse any grammatical, word or spelling errors. Attestation Attestation/ Janitorial Services Supervisor Note: Attestation to D/C Summary, Participation (I saw and evaluated the patient with the Resident, and I reviewed and discussed the patient with the Resident and agree with the Resident's findings and plans as documented above., immediately available, management reviewed and discussed), I agree with findings & plan, Provider Signature (KYLE RAMIREZ, XIOMARA Hollins Patient Condition at Discharge: Stable Plan - Discharge Summary Discharge Rx Participant: No New Discharge Prescriptions: New Apixaban [Eliquis] 2.5 mg PO BID #60 tab Continue Simvastatin 40 mg PO HS Vitamin B-12 (Unknown Dose) 1 tab PO DAILY HYDROcodone/APAP 5-325MG [Pawling 5-325] 1 tab PO Q6HR PRN 3 Days #6 tab PRN Reason: Analgesia Omeprazole [PriLOSEC] 20 mg PO DAILY PRN PRN Reason: Acid reflux Cholecalciferol (Vitamin D3) [Vitamin D3 (50 Mcg = 2000 Iu)] 50 mcg PO DAILY Vit B Comp No.3/Folic/C/Biotin [Dixie-Desiree Rx Tablet] 1 each PO DAILY Sevelamer Carbonate 1,600 mg PO TID-W/MEALS diphenhydrAMINE [Benadryl] 50 mg PO BID PRN PRN Reason: Itching Zolpidem [Ambien] 5 mg PO HS PRN PRN Reason: Insomnia Metoprolol Succinate [Metoprolol Succinate ER] 25 mg PO HS Discontinued Apixaban [Eliquis] 5 mg PO DAILY Discharge Medication List Simvastatin 40 mg PO HS 10/08/21 [History] Omeprazole [PriLOSEC] 20 mg PO DAILY PRN 10/24/21 [History] Cholecalciferol (Vitamin D3) [Vitamin D3 (50 Mcg = 2000 Iu)] 50 mcg PO DAILY 05/25/24 [History] Vit B Comp No.3/Folic/C/Biotin [Dixie-Desiree Rx Tablet] 1 each PO DAILY 05/25/24 [History] Vitamin B-12 (Unknown Dose) 1 tab PO DAILY 05/25/24 [History] HYDROcodone/APAP 5-325MG [Pawling 5-325] 1 tab PO Q6HR PRN 3 Days #6 tab 05/29/24 [Rx] Sevelamer Carbonate 1,600 mg PO TID-W/MEALS 07/04/24 [History] Metoprolol Succinate [Metoprolol Succinate ER] 25 mg PO HS 07/07/24 [History] Zolpidem [Ambien] 5 mg PO HS PRN 07/07/24 [History] diphenhydrAMINE [Benadryl] 50 mg PO BID PRN 07/07/24 [History] Apixaban [Eliquis] 2.5 mg PO BID #60 tab 07/11/24 [Rx] Follow up Appointment(s)/Referral(s): Adin Dyer MD [Medical Doctor] - 1 Week Patient Instructions/Handouts: Dialysis Diet (DC), Peritoneal Dialysis Catheter Care (DC), Peritoneal Dialysis (DC) Activity/Diet/Wound Care/Special Instructions: Please follow-up with your PCP and surgery within 1 week. Continue with your dialysis as per schedule.. Discharge Disposition: HOME SELF-CARE
--- NOTE | 2024-07-11 10:58 | P.PN ---
Subjective Progress Note Date: 07/11/24 SURGICAL PROGRESS NOTE CHIEF COMPLAINT: Malfunctioning peritoneal dialysis catheter and malfunctioning Port-A-Cath HISTORY OF PRESENT ILLNESS: Patient is postop day #1 status post laparoscopic revision of peritoneal dialysis catheter and Port-A-Cath removal. Patient reports his pain is controlled. Denies any nausea or vomiting. Afebrile. WBC 5.48 PHYSICAL EXAM: VITAL SIGNS: Reviewed. GENERAL: Well-developed in no acute distress. CHEST: Incision site from Port-A-Cath removal clean dry and intact ABDOMEN: Soft. Nondistended. Peritoneal dialysis catheter dressing clean dry and intact. Mild tenderness around site. NEUROLOGIC: Alert and oriented. Cranial nerves II through XII grossly intact. ASSESSMENT: 1. Malfunctioning peritoneal dialysis catheter 2. Malfunctioning Port-A-Cath PLAN: - Patient can be discharged from surgical standpoint Physician Veneer Manufacturer note has been reviewed by physician. Signing provider agrees with the documented findings, assessment, and plan of care. Objective - Vital Signs Vital signs: Vital Signs Temp 97.6 F 07/11/24 07:15 Pulse 79 07/11/24 07:15 Resp 14 07/11/24 07:15 BP 125/89 07/11/24 07:15 Pulse Ox 96 07/11/24 07:15 FiO2 Intake & Output 07/10/24 07/11/24 07/11/24 18:59 06:59 18:59 Intake Total 650 Output Total 4505 Balance -3855 Intake: IV 150 Hemodialysis 500 Output: Hemodialysis 2500 Hemodialysis Net Amount 2000 Estimated Blood Loss 5 Other: Voiding Method Toilet Toilet Toilet # Voids 2 1 # Bowel Movements 0 - Labs CBC & Chem 7: 07/11/24 04:43 07/11/24 04:43 Labs: Abnormal Lab Results - Last 24 Hours (Table) 07/10/24 07/11/24 07/11/24 Range/Units 16:43 04:43 04:43 RBC 4.02 L (4.40-5.60) 10*6/uL Hgb 11.1 L (13.0-17.0) g/dL Hct 35.8 L (39.6-50.0) % MCHC 31.0 L (32.0-37.0) g/dL RDW 18.8 H (11.5-14.5) % Sodium 130 L (137-145) mmol/L Potassium 5.3 H (3.5-5.1) mmol/L Chloride 95 L (98-107) mmol/L Carbon Dioxide 21 L (22-30) mmol/L BUN 51 H (9-20) mg/dL Creatinine 7.90 H* (0.66-1.25) mg/dL Glucose 102 H (74-99) mg/dL POC Glucose (mg/dL) 113 H (70-110) mg/dL
--- NOTE | 2024-07-11 11:16 | CDI ---
Documentation Clarification Form Date: 07/11/2024 10:40:59 AM From: Kenna Sim RN CCDS Phone: [phone] Admit Date: 07/07/2024 08:00:00 AM Patient Name: Thang Wheeler Visit Number: [id number] Discharge Date: ATTENTION: The Clinical Documentation Specialists (CDI) and [facility] Coding Staff appreciate your assistance in clarifying documentation. Please respond to the clarification below the line at the bottom and electronically sign. The CDI & [facility] Coding staff will review the response and follow-up if needed. Please note: Queries are made part of the Legal Health Record. If you have any questions, please contact the author of this message via ITS. Dr. Carrie Corea Acute Approximate Respiratory Failure is documented 07/08 - 07/10, Medicine note which may lack sufficient clinical evidence/support in the medical record. Additional clarification is requested. Patient history/risk factors: 54 year old male presented to [facility] for elective replacement of nonfunctioning peritoneal dialysis catheter. Medical Hx: ESRD on hemodialysis, DM, Cardiomyopathy, Bilateral kidney transplant and colon cancer 04/2023. , 07/07 Clinical Indicators: 07/07 15:36 Chest XRAY: Cardiomegaly, pulmonary vascular congestion and small pleural effusion. 07/07 14:43 SpO2 93% room air 07/07 18:55 SpO2 98% room air 07/08 02:00 SpO2 88% room air 07/08 04:32 SpO2 100% 2L nc 07/08 07:00 SpO2 98% 2L nc 07/08 14:41 SpO2 99% room air 07/08 Medicine note, Lung assessment: CTA bilateral, no rhonchi, no rales, no accessory muscle use. Treatment: 2L nasal cannula 07/08 04:32 - 07/08 07:00 After work up and study, please clarify which diagnosis is most appropriate? [ ] Acute Hypoxic Respiratory Failure ruled out [ ] Acute Hypoxic Respiratory Failure is a valid diagnosis as evidenced by the following: [ ] Respiratory Insufficiency [ ] Unable to determine [ ] Other, please specify (Template Last Revised: March 2023) not mine MTDD
--- NOTE | 2024-07-12 00:02 | P.PN ---
Subjective Patient is seen for f/u for ESRD. Status post revision of PD catheter yesterday Doing well with no significant complaints. Patient prefers to have dialysis tomorrow as outpatient. He denies any complaints of shortness of breath. Objective - Vital Signs Vital signs: Vital Signs Temp 97.6 F 07/11/24 07:15 Pulse 79 07/11/24 07:15 Resp 14 07/11/24 07:15 BP 125/89 07/11/24 07:15 Pulse Ox 96 07/11/24 07:15 FiO2 Intake & Output 07/11/24 07/11/24 07/12/24 06:59 18:59 06:59 Other: Voiding Method Toilet Toilet # Voids 1 # Bowel Movements 0 - Exam Patient is awake, comfortable, no acute distress. Examination of the heart S1 and S2 Examination of the lungs bilateral breath sounds are heard, decreased breath sounds at the bases Abdomen is soft nontender Examination of lower extremities shows no significant edema [employer] exam grossly intact - Labs CBC & Chem 7: 07/11/24 04:43 07/11/24 04:43 Labs: Abnormal Lab Results - Last 24 Hours (Table) 07/11/24 07/11/24 Range/Units 04:43 04:43 RBC 4.02 L (4.40-5.60) 10*6/uL Hgb 11.1 L (13.0-17.0) g/dL Hct 35.8 L (39.6-50.0) % MCHC 31.0 L (32.0-37.0) g/dL RDW 18.8 H (11.5-14.5) % Sodium 130 L (137-145) mmol/L Potassium 5.3 H (3.5-5.1) mmol/L Chloride 95 L (98-107) mmol/L Carbon Dioxide 21 L (22-30) mmol/L BUN 51 H (9-20) mg/dL Creatinine 7.90 H* (0.66-1.25) mg/dL Glucose 102 H (74-99) mg/dL Assessment and Plan Assessment: 1. End-stage renal disease on hemodialysis, transitioning to peritoneal dialysis but currently with malfunctioning PD catheter, status post revision on 07/10/2024 2. Volume overload, improved 3. History of colon cancer currently maintained on immunotherapy 4. History of failed renal transplant Plan: Stable for discharge from nephrology standpoint if cleared by surgery Hemodialysis in a.m. as outpatient Continue Renvela with meals Continue current antihypertensive regimen
--- NOTE | 2024-07-12 07:31 | CDI ---
Documentation Clarification Form Date: 07/11/2024 10:40:00 AM From: Kenna Sim Phone: [phone] Admit Date: 07/07/2024 08:00:00 AM Patient Name: Thang Wheeler Visit Number: [id number] Discharge Date: 07/11/2024 11:40:00 AM ATTENTION: The Clinical Documentation Specialists (CDI) and [facility] Coding Staff appreciate your assistance in clarifying documentation. Please respond to the clarification below the line at the bottom and electronically sign. The CDI & [facility] Coding staff will review the response and follow-up if needed. Please note: Queries are made part of the Legal Health Record. If you have any questions, please contact the author of this message via ITS. Dr. Tyra Zuleta Acute Approximate Respiratory Failure is documented 07/08 - 07/10, Medicine note which may lack sufficient clinical evidence/support in the medical record. Additional clarification is requested. Patient history/risk factors: 54 year old male presented to [facility] for elective replacement of nonfunctioning peritoneal dialysis catheter. Medical Hx: ESRD on hemodialysis, DM, Cardiomyopathy, Bilateral kidney transplant and colon cancer 04/2023. HP, 07/07 Clinical Indicators: 07/07 15:36 Chest XRAY: Cardiomegaly, pulmonary vascular congestion and small pleural effusion. 07/07 14:43 SpO2 93% room air 07/07 18:55 SpO2 98% room air 07/08 02:00 SpO2 88% room air 07/08 04:32 SpO2 100% 2L nc 07/08 07:00 SpO2 98% 2L nc 07/08 14:41 SpO2 99% room air 07/08 Medicine note, Lung assessment: CTA bilateral, no rhonchi, no rales, no accessory muscle use. Treatment: 2L nasal cannula 07/08 04:32 - 07/08 07:00 After work up and study, please clarify which diagnosis is most appropriate? [ ] Acute Hypoxic Respiratory Failure ruled out [ x ] Acute Hypoxic Respiratory Failure is a valid diagnosis as evidenced by the following: ___pulmonary vascular congestion [ ] Respiratory Insufficiency [ ] Unable to determine [ ] Other, please specify (Template Last Revised: March 2023) MTDD
== END 2024-07-11 11:40 | disposition home or self-care (01) | DRG 907 ==
LOC: OR 07:59 → 6NMEDSUR 08:00 → OR 08:00 → 6NMEDSUR 10:12
PROVIDERS: ADMIT Internal Medicine; ATTEND Internal Medicine
PROC: 0WWG43Z Revision of Infusion Device in Peritoneal Cavity, Percutaneous Endoscopic Approach (ICD-10-PCS; principal; 2024-07-10 09:25)
PROC: 0JPT0WZ Removal of Totally Implantable Vascular Access Device from Trunk Subcutaneous Tissue and Fascia, Open Approach (ICD-10-PCS; 2024-07-10 09:25)
DX: T85.611A Breakdown (mechanical) of intraperitoneal dialysis catheter, initial encounter (principal); I50.23 Acute on chronic systolic (congestive) heart failure; J96.01 Acute respiratory failure with hypoxia; N18.6 End stage renal disease; I13.2 Hypertensive heart and chronic kidney disease with heart failure and with stage 5 chronic kidney disease, or end stage renal disease; T86.12 Kidney transplant failure; I42.7 Cardiomyopathy due to drug and external agent; C21.0 Malignant neoplasm of anus, unspecified; Z99.2 Dependence on renal dialysis; E11.22 Type 2 diabetes mellitus with diabetic chronic kidney disease; D63.0 Anemia in neoplastic disease; I48.91 Unspecified atrial fibrillation; T45.1X5A Adverse effect of antineoplastic and immunosuppressive drugs, initial encounter; R00.8 Other abnormalities of heart beat; E78.5 Hyperlipidemia, unspecified; K21.9 Gastro-esophageal reflux disease without esophagitis; I49.9 Cardiac arrhythmia, unspecified; Z79.01 Long term (current) use of anticoagulants; Z79.899 Other long term (current) drug therapy; Z85.048 Personal history of other malignant neoplasm of rectum, rectosigmoid junction, and anus; Z92.3 Personal history of irradiation
CPT/HCPCS: 71045; 80048; 82565; 83880; 84132; 84520; 85027; 90935; 93306